=== PATIENT | male | born 1970 | race African-American/Black ===

== ENCOUNTER 2018-08-09 09:14 | Observation (INO) | payer OTHER ==
[~2018-08-09] VITALS: Ht 167.6 cm; Wt 78.0 kg
[~2018-08-09 09:14] MED LIST: BACTRIM DS1 TAB PO; BENADRYL25 MG PO; CIPROFLOXACN500 MG PO; CLONAZEPAM0.5 MG OR; DEPAKOTE250 MG OR; DEPAKOTE500 MG PO; DOXYCYCL HYC100 M4 PO; ENSURE OR; HALOPERIDOL10 MG OR; LORTAB 10 PO; PAROXETINE10 MG OR; PAROXETINE10 MG PO; PAXIL10 MG OR; TEGRETOL OR; TEGRETOL PO
--- NOTE | 2018-08-09 09:31 | NUR ---
PATIENT TO ROOM VIA WHEELCHAIR AND PHYSICIAN AT BEDSIDE FOR EVAL
[2018-08-09 10:45] LABS: HEMATOCRIT 45.9 % (39.0-50.0); HEMOGLOBIN 14.3 g/dl (14.0-18.0); IMMATURE GRANULOCYTES 0.4 % (0.0-5.0); MEAN CELL VOLUME 101.3 fL CALC (80.0-100.0); MEAN CORPUSCULAR HGB 31.6 pG CALC (26.0-32.0); MEAN CORPUSCULAR HGB CONC 31.2 g/L CALC (32.0-36.0); NEUT# 5.95 thou/uL (1.82-7.42); RED BLOOD COUNT 4.53 mill/uL (4.70-6.10); RED CELL DISTRI WIDTH 14.3 % (11.5-15.5)
[2018-08-09 10:58] LABS: INTERNATIONAL NORMALIZED RATIO 1.2 RATIO (0.7-1.3); PROTHROMBIN TIME 12.4 SECONDS (9.0-12.5)
--- NOTE | 2018-08-09 11:00 | NUR ---
PT WITH IV ESTABLISHED, BLOOD DRAWN. NO DISTRESS. PT NON-VERBAL.
[2018-08-09 11:02] LABS: ALBUMIN 3.6 g/dL (3.2-5.0); ALKALINE PHOSPHATASE 91 u/l (38-126); BUN 20 mg/dL (9-20); BUN/CREATININE RATIO 21 (12-20 (CALC)); CHLORIDE 106 mmol/l (95-108); CREATININE 0.9 mg/dL (0.7-1.3); GFR > 60 ML/MIN (>=60 (CALC)); GFR FOR AFR.AMER. > 60 ML/MIN (>=60 (CALC)); SGOT/AST 91 u/l (17-59); SODIUM 145 mmol/l (137-146); TOTAL PROTEIN 9.4 g/dL (6.3-8.2)
[2018-08-09 11:04] LABS: ANION GAP 13 (6-22 (CALC)); BILIRUBIN, TOTAL 0.9 mg/dL (0.0-1.4); CARBON DIOXIDE 30 mmol/l (22-30); POTASSIUM 4.2 mmol/l (3.5-5.1)
[2018-08-09 14:11] LABS: URINE BLOOD DIPSTICK NEGATIVE (NEGATIVE); URINE GLUCOSE - DIPSTICK NEGATIVE (NEGATIVE); URINE KETONE TRACE mg/dL (NEGATIVE); URINE LEUK ESTERASE NEGATIVE (NEGATIVE); URINE NITRITE - DIPSTICK NEGATIVE (Negative); URINE PH 5.5 (4.5-8.0); URINE PROTEIN - DIPSTICK NEGATIVE (NEG-TRACE); URINE SPECIFIC GRAVITY >=1.030
[2018-08-09 14:12] LABS: URINE BILIRUBIN - DIPSTICK NEGATIVE (NEGATIVE); URINE COLOR DK. YELLOW
--- NOTE | 2018-08-09 14:23 | NUR ---
PT STRAIGHT CATHED FOR URINE SPECIMEN. CAREGIVER AT BEDSIDE. NO SEIZURE ACTIVITY NOTED.
--- NOTE | 2018-08-09 15:52 | NUR ---
PT AND CAREGIVER WAIT FOR RESULTS FROM CT. PT REMAINS AT REST IN THE STRETCHER.
--- NOTE | 2018-08-09 15:59 | NUR ---
EMERGENCY INTELLIGENCE CONSULTANT PHONE NUMBER FOR CONGREGATION SERVICES, . THIS IN CASE CONSENT NEEDS TO BE GIVEN FOR PROCEDURE OR SIMILAR.
[2018-08-09] MEDS ORDERED: DIVALPROEX SOD250 MG PO (16:16)
[2018-08-09] MEDS ORDERED: LEVETIRACETAM500 MG PO (16:16)
--- NOTE | 2018-08-09 16:24 | NUR ---
CAREGIVER AWARE OF PENDING ADMISSION, LEAVES HOSPITAL AFTER UPDATE. PT RESTS IN THE STRETCHER, NO DISTRESS NOTED.
--- NOTE | 2018-08-09 17:00 | NUR ---
PT ARRIVED FROM ER VIA STRETCHER ACCOMPANIED BY STAFF. IV SITE INTACT. DEPEND IN PLACE.
--- NOTE | 2018-08-09 17:03 | NUR ---
PT TAKEN TO ROOM 273 WITHOUT INCIDENT, REPORT WAS TO MAGGIE.
[2018-08-09 17:04] VITALS: BP 131/76
--- NOTE | 2018-08-09 17:40 | NUR ---
ASSESSMENT IS COMPLETED: PT HAS GARBLED SPEECH. IV SITE IS FREE FROM REDNESS OR EDEMA. HR IS REG,PULSES ARE STRONG X4, ABD IS SOFT WITH ACTIVE BS. BREATH SOUNDS ARE CLEAR.BILATERALLY. HELMET IN PLACE. CONTINUE TO OSBERVE AND MONTIOR.
[2018-08-09 18:30] VITALS: BP 147/102
--- NOTE | 2018-08-09 19:30 | NUR ---
PATIENT RESTING IN BED AT THIS TIME WITH EYES CLOSED AND APPEARS SLEEPING. RESP ARE EVEN AND UNLABORED. TEMP IS 99.0 AT THIS TIME. HELMET HAS BEEN REMOVED AND SIDERAILS HAVE BEEN PADDED FOR SEIZURE PRECAUTIONS. IV KEPPRA INFUSING ORDERED. IV SITE TO RIGHT AC INTACT-IVF D51/2NS AT 75CC/HR. PATIENT IS NPO AT THIS TIME. BED ALARM IN PLACE FOR PATIENT SAFETY. CALL LIGHT IN REACH. WILL CONT TO MONITOR.
--- NOTE | 2018-08-10 00:12 | NUR ---
PATIENT RESTING IN BED AT THIS TIME. RESPONDS WITH A MOAN WHEN SPOKEN TO. IV ZOSYN HUNG AND IS INFUSING ORDERED. SIDERAILS PADDED FOR SEIZURE PRECAUTIONS. CALL LIGHT IN REACH. WILL CONT TO MONITOR.
--- NOTE | 2018-08-10 01:06 | NUR ---
PATIENT MORE AWAKE AND ALERT AT THIS TIME. INCONT OF LARGE AMT OF URINE. PATIENT PROVIDED WITH DEREK-CARE. TURNED AND REPOSITIONED ON RIGHT SIDE. BED ALARM IN PLACE FOR PATIENT SAFETY. CALL LIGHT IN REACH. WILL CONT TO MONITOR.
[2018-08-10 03:26] VITALS: BP 117/79
--- NOTE | 2018-08-10 05:08 | NUR ---
PATIENT RESTING IN BED-MUCH MORE ALERT AT THIS TIME. [facility] CONTACT. LAB WAS UNABLE TO OBTAIN LAB SPEC AT THIS TIME. WILL TRY AGAIN AFTER SHIFT CHANGE. PATIENT ANSWERS QUESTIONS BY SHAKING HIS HEAD OR 1 WORD ANSWERS. IVF PATENT AND INFUSING VIA RIGHT AC SITE. BED ALARM IN PLACE FOR PATIENT SAFETY. CALL LIGHT IN REACH. WILL CONT TO MONITOR.
[2018-08-10 08:20] VITALS: BP 113/65
--- NOTE | 2018-08-10 08:20 | NUR ---
ASSESSMENT IS COMPLETED: IV SITE IS FREE FROM REDNESS OR EDEMA. HR IS REG,PULSES ARE STRONG X4, ABD IS SOFT WITH ACTIVE BS. BREATH SOUNDS ARE CLEAR, BILATERALLY WELL DIMINSHED. ALERT TO NAME, AND DATE. CONTINUE TO OBSERVE AND MONITOR. TEMP WAS 100.1 DUE TO MULTIPLE BLANKETS.
[2018-08-10 09:41] LABS: HEMOGLOBIN 12.8 g/dl (14.0-18.0); IMMATURE GRANULOCYTES 0.6 % (0.0-5.0); MEAN CELL VOLUME 102.5 fL CALC (80.0-100.0); MEAN CORPUSCULAR HGB CONC 31.2 g/L CALC (32.0-36.0); NEUT# 5.41 thou/uL (1.82-7.42); RED CELL DISTRI WIDTH 14.4 % (11.5-15.5)
[2018-08-10 09:54] LABS: ALKALINE PHOSPHATASE 60 u/l (38-126); AMYLASE 47 u/l (30-110); ANION GAP 9 (6-22 (CALC)); BILIRUBIN, TOTAL 0.8 mg/dL (0.0-1.4); BUN 16 mg/dL (9-20); BUN/CREATININE RATIO 23 (12-20 (CALC)); CARBON DIOXIDE 31 mmol/l (22-30); CHLORIDE 108 mmol/l (95-108); CREATININE 0.7 mg/dL (0.7-1.3); GFR > 60 ML/MIN (>=60 (CALC)); GFR FOR AFR.AMER. > 60 ML/MIN (>=60 (CALC)); LIPASE 152 u/l (23-300); MAGNESIUM 2.4 mg/dL (1.6-2.3); POTASSIUM 4.9 mmol/l (3.5-5.1); SGOT/AST 72 u/l (17-59); SODIUM 143 mmol/l (137-146)
[2018-08-10 10:01] LABS: ALBUMIN 2.7 g/dL (3.2-5.0); TOTAL PROTEIN 7.4 g/dL (6.3-8.2)
--- NOTE | 2018-08-10 10:09 | NUR ---
ATTEMPTED TO CALL RE: PT WENT TO THE FAX MACHINE
[2018-08-10 10:26] LABS: PHENYTOIN (DILANTIN) < 3 ug/mL (10 - 20)
--- NOTE | 2018-08-10 10:37 | NUR ---
SPOKE WITH SOCO AT [facility] INTERMEDIATE RE: PT. INQUIRED HOW HE WAS AND TO HELP TAKE CARE OF HIM TO GET RID OF THE PNEUMONIA.
--- NOTE | 2018-08-10 10:45 | NUR ---
SPOKEW VINNY KISER STATED" PT GOES TO HIS DR APPOINTMENTS. WHEN HE COMES TO GET BLOOD THEY HAVE TO GET IT OUT OF HIS FINGER. " THANKED HER FOR THE INFORMATION.
--- NOTE | 2018-08-10 12:10 | NUR ---
PT IS AWAKE, DR. RAMEY AND MESSAGING ARCHITECT IN TO VISIT WITH PT. ABLE TO START CLEAR LIQUIDS. PT TOLERATING WELL. IV SITE IS FREE FROM REDNESS OR EDEMA. CONTINUE TO OBSERVE AND MONITOR.
[2018-08-10 15:40] VITALS: BP 127/73
--- NOTE | 2018-08-10 16:10 | NUR ---
PT IS RELAXING IN BED WITH NO DISTRESS NOTED. ROOM IS VERY WARM. TEMP AT THIS TIME ON PT IS 99.5. CONTINUE TO OBSERVE AND MONITOR.
--- NOTE | 2018-08-10 19:30 | NUR ---
PATIENT RESTING IN BED AT THIST TIME. AWAKE ALERT AND WATCHING TV-DOESN'T APPEAR IN ANY DISTRESS. PATIENT DOES ANSWER SOME QUESTIONS WITH SHAKING HEAD AND OR SHORT 1 OR 2 WORD ANSWERS. PATIENT IS INCONT OF LARGE AMT OF URINE. PATIENT PROVIDED WITH DEREK-CARE WITH SOAP AND H20. TURNED AND REPOSITIONED ON HIS SIDE. IV SITE TO RIGHT AC INTACT WITH IVF D51/2NS PATENT AND INFUSING AT 75CC/HR. BED ALARM IN PLACE FOR PATIENT SAFETY. CALL LIGHT IN REACH. WILL CONT TO MONITOR.
[2018-08-10 20:15] VITALS: BP 117/71
--- NOTE | 2018-08-10 22:00 | NUR ---
PATIENT RESTING IN BED. IV SITE TO RIGHT AC INFILTRATED. AFTER MULTIPLE ATTEMPTS TO RESTART SITE, IV SITE TO RIGHT WRIST OBTAINED WITH GOOD BLOOD RETURN. KEPRRA INFUSING ORDERED. PATIENT IS NPO AND MOUTH CARE WAS DONE USING TOOTHETES. SIDERAILS ARE PADDED FOR SEIZURE PRECAUTIONS. NO SEIZURE ACTIVITY HAS BEEN OBSERVED. BED ALARM IN PLACE FOR PATIENT SAFETY. CALL LIGHT IN REACH. WILL CONT TO MONITOR.
--- NOTE | 2018-08-11 03:42 | NUR ---
APPEARS SLEEPING WITH SHEET OVER HIS HEAD. RESP ARE EVEN AND UNLABORED. IVF PATENT AND INFUSING AT 75CC/HR VIA RIGHT WRIST SITE. SIDERAILS PADDED FOR SEIZURE PRECAUTIONS. BED ALARM IN PLACE FOR PATIENT SAFETY. CALL LIGHT IN REACH. WILL CONT TO MONITOR.
[2018-08-11 04:17] VITALS: BP 110/74
--- NOTE | 2018-08-11 07:05 | NUR ---
REPORT RECEIVED FROM KATJA PAUL;PT APPEARS TO BE SLEEPING IN LEFT SIDE LAYING POSITION,WAKES EASILY TO VERBAL STIMULI;INTRODUCED SELF TO PT AND POC DISCUSSED;RESPIRATIONS EVEN AND UNLABORED ON RA;NO S/S OF DISTRESS NOTED AT THIS TIME;FALL PRECAUTIONS IN PLACE WITH BED IN THE LOWEST POSITION AND CALL LIGHT IN REACH;WILL CONTINUE TO MONITOR
[2018-08-11 07:40] VITALS: BP 119/58
--- NOTE | 2018-08-11 08:50 | NUR ---
PT RESTING IN LEFT SIDE LAYING POSITION;ASSESSMENT COMPLETED;PT ALERT TO SELF, WILL RE-ORIENT NEEDED;PT DENIES ANY CURRENT PAIN OR DISCOMFORTS,PAIN SCALE AND REPORTING EDUCATED;RESPIRATIONS SHALLOW ON RA, PRODUCTIVE COUGH NOTED AT TIMES;ABDOMEN SOFT ON PALPATION AND ACTIVE IN ALL 4 QUADRANTS;WEAK PEDAL PULSES;SKIN INTACT;#24G TO RIGHT WRIST INFUSING D5 1/2 NS @ 75ML/HR,SITE APPEARS HEALTHY;SEIZURE PRECAUTIONS IN PLACE;ALL SAFETY PRECAUTIONS NOTED WITH BED IN THE LOWEST POSITION AND CALL LIGHT IN REACH;WILL CONTINUE TO MONITOR
--- NOTE | 2018-08-11 09:15 | NUR ---
SPEECH THERAPY AT BEDSIDE
--- NOTE | 2018-08-11 09:44 | NUR ---
PHYSICAL THERAPY AT BEDSIDE
--- NOTE | 2018-08-11 11:12 | NUR ---
PT REPORTS BLE PAIN AND REQUESTS PAIN MEDICATION,PT MEDICATED WITH PRN TYLENOL 650MG RE SUP;WILL CONTINUE TO MONITOR
--- NOTE | 2018-08-11 12:05 | NUR ---
PT RESTING IN SEMI FOWLERS POSITION;RESPIRATIONS EVEN AND UNLABORED ON RA;PT REPORTS BLE PAIN HAS DECREASED;IV SITE CONTINUES TO INFUSE TO RIGHT WRIST WITH EASE;SEIZURE PRECAUTIONS IN PLACE;PT ENCOURAGED TO CALL FOR ASSISTANCE IF NEEDED;CALL LIGHT IN REACH;WILL CONTINUE TO MONITOR
--- NOTE | 2018-08-11 12:48 | NUR ---
AT BEDSIDE DISCUSSING POC.
[2018-08-11 15:30] VITALS: BP 140/79
--- NOTE | 2018-08-11 16:10 | NUR ---
PT RESTING IN SEMI FOWLERS POSITION;RESPIRATIONS EVEN AND UNLABORED ON RA;PT DENIES ANY CURRENT PAIN AT THIS TIME;ASSESSMENT REMAINS UNCHANGED;NO IV SITE PER MD;SEIZURE AND FALL PRECAUTIONS IN PLACE;BED IN THE LOWEST POSITION WITH CALL LIGHT IN REACH;WILL CONTINUE TO MONITOR
--- NOTE | 2018-08-11 19:26 | NUR ---
PATIENT RESTING IN BED-POSITIONED ON LEFT SIDE WITH SIDERAILS PADDED FOR SEIZURE PRECAUTIONS. APPEARS SLEEPING WITH EYES CLOSED. RESP ARE EVEN AND UNLABORED AT THIS TIME. NO IV SITE AT THIS TIME. NO TELE. CALL LIGHT IN REACH. WILL CONT TO MONITOR.
[2018-08-11 19:53] VITALS: BP 162/88
--- NOTE | 2018-08-11 20:24 | NUR ---
PATIENT RESTING IN BED WITH HOB ELEVATED. PATIENT MEDICATED WITH KEPPRA 750MG CRUSHED IN PUDDING. PATIENT WAS ABLE TO TAKE MEDS WITHOUT ANY DIFFICULTY. SIDERAILS REMAIN IN PLACE. BED ALARM IN PLACE FOR PATIENT SAFETY. CALL LIGHT IN REACH. WILL CONT TO MONITOR.
--- NOTE | 2018-08-11 21:36 | NUR ---
PATIENT RESTING IN BED-APPEARS TO BE IN PAIN WHEN TURNING AND REPOSITIONING PATIENT WITH FACIAL GRIMACE AND MOANING OUTLOAD. MEDICATED PATIENT WITH ULTRAM 50MG PO IN APPLESAUCE. PPATIENT WITH NO DIFFICULTY IN SWALLOWING AND ATE THE WHOLE CONTAINER. SIDERAILS ARE PADDED FOR SEIZURE PRECAUTIONS. NO SEIZURE ACTIVITY NOTED. BED ALARM IN PLACE FOR PATIENT SAFETY. CALL LIGHT IN REACH. WILL CONT TO MONITOR.
--- NOTE | 2018-08-11 22:00 | NUR ---
MENDOZA KISER CALLED WANTING TO SPEAK TO NURSE FOR PARI. WAS NOT AVAILABLE AT THE TIME OF THE CALL CARING FOR OTHER PATIENTS. ATEEMTED TO CALL MENDOZA BACK AT [phone] AND WAS NO ANSWER AND NO VOICE MAIL SET UP. WILL CONT TO MONITOR.
--- NOTE | 2018-08-12 00:02 | NUR ---
PATIENT RESTING ON SIDE WITH LINENS OVER HIS HEAD-APPEARS SLEEPING AT THIS TIME. RESP ARE EVEN AND UNLABORED. SIDERAILS IN PLACE FOR SEIZURE PRECAUTIONS. NO SEIZURE ACTIVITY OBSERVED. BED ALARM IN PLACE FOR PATIENT SAFETY. CALL LIGHT IN REACH. WILL CONT TO MONITOR.
--- NOTE | 2018-08-12 03:55 | NUR ---
PATIENT APPEARS SLEEPING WITH LINENS OVER HIS HEAD. RESP ARE EVEN AND UNLABORED. SIDERAILS REMAIN PADDED FOR SEIZURE PRECAUTIONS-NO SEIZURE ACTIVITY OBSERVED. CALL LIGHT IN REACH. WILL CONT TO MONITOR.
[2018-08-12 04:13] VITALS: BP 124/66
[2018-08-12 05:10] LABS: HEMATOCRIT 36.9 % (39.0-50.0); HEMOGLOBIN 11.8 g/dl (14.0-18.0); IMMATURE GRANULOCYTES 0.7 % (0.0-5.0); MEAN CELL VOLUME 98.4 fL CALC (80.0-100.0); MEAN CORPUSCULAR HGB 31.5 pG CALC (26.0-32.0); NEUT# 4.84 thou/uL (1.82-7.42); RED BLOOD COUNT 3.75 mill/uL (4.70-6.10)
[2018-08-12 05:38] LABS: ALBUMIN 2.6 g/dL (3.2-5.0); ALKALINE PHOSPHATASE 78 u/l (38-126); ANION GAP 11 (6-22 (CALC)); BILIRUBIN, TOTAL 0.9 mg/dL (0.0-1.4); BUN 11 mg/dL (9-20); BUN/CREATININE RATIO 17 (12-20 (CALC)); CARBON DIOXIDE 28 mmol/l (22-30); CHLORIDE 103 mmol/l (95-108); CREATININE 0.7 mg/dL (0.7-1.3); GFR > 60 ML/MIN (>=60 (CALC)); GFR FOR AFR.AMER. > 60 ML/MIN (>=60 (CALC)); POTASSIUM 4.4 mmol/l (3.5-5.1); SGOT/AST 51 u/l (17-59); SODIUM 137 mmol/l (137-146); TOTAL PROTEIN 6.8 g/dL (6.3-8.2)
--- NOTE | 2018-08-12 07:00 | NUR ---
PT REPORT RECIEVED FROM KATJA PAUL. PT RESTING. NO S/S OF DISTRESS. CALL LIGHT IN REACH. WILL CONTINUE TO MONITOR.
[2018-08-12 08:41] VITALS: BP 122/83
--- NOTE | 2018-08-12 08:41 | NUR ---
PT ALERT TO SELF; SPEECH GARBLED. REORIENTED NEEDED. NONPRODUCTIVE COUGH NOTED. HOB ELEVATED. RESP EVEN AND UNLABORED. LUNG SOUNDS CLEAR. BOWEL SOUNDS ACTIVE X4. STRONG RADIAL AND PEDAL PULSES. NO IV SITE AT THIS TIME. SKIN INTACT. POC DISCUSSED. SAFETY PRECAUTIONS IN PLACE. CALL LIGHT IN REACH. Q2 TURN. WILL CONTINUE TO MONITOR.
--- NOTE | 2018-08-12 10:00 | NUR ---
PHYSICAL THERAPY IN TO SEE PT
--- NOTE | 2018-08-12 10:06 | NUR ---
Attempted physical therapy treatment this morning, however pt. not cooperating. Minimally verbalized yes/no, mostly nodded his head yes/no to questions. Pt. laying L side lying in position and resisting therapy intervention. Nurse informed of same.
--- NOTE | 2018-08-12 12:09 | NUR ---
PT C/O LT LEG PAIN. 7 OUT OF 10 ON PAIN SCALE. MEDICATED W/ ULTRAM 50 MG PO. REPOSITIONED IN BED. ORDNANCE KEEPER AT BEDSIDE FEEDING PT. CALL LIGHT IN REACH. WILL CONTINUE TO MONITOR.
[2018-08-12] MEDS ORDERED: LEVAQUIN500 MG PO (13:06)
[2018-08-12 15:05] VITALS: BP 107/73
--- NOTE | 2018-08-12 15:30 | NUR ---
Entered pt. room as he was sleeping. Tried numerous times to wake pt. without any response.
--- NOTE | 2018-08-12 15:44 | NUR ---
PT RESTING IN BED. NO C/O PAIN OR NEEDS. CALL LIGHT IN REACH. WILL CONTINUE TO MONITOR.
--- NOTE | 2018-08-12 17:20 | NUR ---
D/C INSTRUCTIONS DISCUSSED W/ PT CAREGIVER. CAREGIVER STATES UNDERSTANDING. PT GETTING CLEANED UP BY [employer] EQUIPMENT REPAIRER'S AT THIS TIME.
--- NOTE | 2018-08-12 17:30 | NUR ---
Discharge instructions given. Patient verbalizes understanding of same. Discharged in stable condition via Wheelchair to [facility] Facility with *Other. All belongings sent with pt.
== END 2018-08-12 17:30 | disposition short-term general hospital (02) ==
LOC: ED 09:14 → ED-I 09:37 → ED 16:22 → MS2 16:23
PROVIDERS: Emergency Medicine; Nurse Practitioner Family; ADMIT Internal Medicine Nephrology; ATTEND Internal Medicine Nephrology
DX: J18.9 Pneumonia, unspecified organism (principal); G93.41 Metabolic encephalopathy; F73 Profound intellectual disabilities; G40.909 Epilepsy, unspecified, not intractable, without status epilepticus; G80.9 Cerebral palsy, unspecified; S00.03XA Contusion of scalp, initial encounter; X58.XXXA Exposure to other specified factors, initial encounter; Y95 Nosocomial condition; Z99.3 Dependence on wheelchair
CPT/HCPCS: G0378; J1650; J1953; Q9967; S0164

== ENCOUNTER 2019-01-01 18:07 | Emergency (ER) | payer OTHER ==
[~2019-01-01] VITALS: Ht 167.6 cm; Wt 81.8 kg
[~2019-01-01 18:07] MED LIST changes: +DIVALPROEX SOD250 MG PO; +LEVAQUIN500 MG PO; +LEVETIRACETAM500 MG PO
[2019-01-01] MEDS ORDERED: LEVETIRACET100 MG/M1 PO (18:18)
[2019-01-01 19:08] LABS: IMMATURE GRANULOCYTES 0.4 % (0.0-5.0); MEAN CORPUSCULAR HGB 26.8 pG CALC (26.0-32.0); MEAN CORPUSCULAR HGB CONC 31.5 g/L CALC (32.0-36.0); NEUT# 9.75 thou/uL (1.82-7.42); RED BLOOD COUNT 5.45 mill/uL (4.70-6.10); RED CELL DISTRI WIDTH 14.2 % (11.5-15.5)
[2019-01-01 19:09] LABS: HEMATOCRIT 46.3 % (39.0-50.0); HEMOGLOBIN 14.6 g/dl (14.0-18.0)
[2019-01-01 19:49] LABS: URINE BILIRUBIN - DIPSTICK NEGATIVE (NEGATIVE); URINE BLOOD DIPSTICK NEGATIVE (NEGATIVE); URINE COLOR YELLOW; URINE GLUCOSE - DIPSTICK NEGATIVE (NEGATIVE); URINE KETONE NEGATIVE (NEGATIVE); URINE LEUK ESTERASE NEGATIVE (NEGATIVE); URINE NITRITE - DIPSTICK NEGATIVE (Negative); URINE PH 5.5 (4.5-8.0); URINE PROTEIN - DIPSTICK TRACE mg/dL (NEG-TRACE); URINE SPECIFIC GRAVITY >=1.030
[2019-01-01 19:50] LABS: BARBITURATES NEGATIVE (NEGATIVE); COCAINE NEGATIVE (NEGATIVE); METHADONE NEGATIVE (NEGATIVE); OXCYCODONE NEGATIVE (NEGATIVE); TETRAHYDROCANNABIONOL NEGATIVE (NEGATIVE); TRICYLIC ANTIDEPRESSANTS NEGATIVE (NEGATIVE)
[2019-01-01 20:02] LABS: ALKALINE PHOSPHATASE 110 u/l (38-126); BILIRUBIN, TOTAL 0.9 mg/dL (0.0-1.4); BUN 9 mg/dL (9-20); BUN/CREATININE RATIO 15 (12-20 (CALC)); CHLORIDE 105 mmol/l (95-108); CREATININE 0.6 mg/dL (0.7-1.3); ETHYL ALCOHOL 0 mg/dl (0-30); GFR > 60 ML/MIN (>=60 (CALC)); GFR FOR AFR.AMER. > 60 ML/MIN (>=60 (CALC)); POTASSIUM 3.7 mmol/l (3.5-5.1); SGOT/AST 26 u/l (17-59); SODIUM 141 mmol/l (137-146)
[2019-01-01 20:09] LABS: ALBUMIN 4.4 g/dL (3.2-5.0); ANION GAP 18 (6-22 (CALC)); CARBON DIOXIDE 22 mmol/l (22-30); TOTAL PROTEIN 9.4 g/dL (6.3-8.2)
[2019-01-01 21:29] VITALS: BP 129/65
== END 2019-01-01 22:10 | disposition short-term general hospital (02) ==
LOC: ED 18:07
PROVIDERS: Emergency Medicine
DX: G40.909 Epilepsy, unspecified, not intractable, without status epilepticus (principal); J18.9 Pneumonia, unspecified organism; G80.9 Cerebral palsy, unspecified; F79 Unspecified intellectual disabilities
CPT/HCPCS: J1953; J2060

== ENCOUNTER 2020-11-28 17:19 | Observation (INO) | payer OTHER ==
[~2020-11-28] VITALS: Ht 167.6 cm; Wt 73.0 kg
[~2020-11-28 17:19] MED LIST changes: +LEVETIRACET100 MG/M1 PO
--- NOTE | 2020-11-28 17:40 | NUR ---
PT TO ROOM VIA WHEELCHAIR, ACCOMPANIED BY CAREGIVER.
[2020-11-28 18:44] LABS: URINE BILIRUBIN - DIPSTICK NEGATIVE (NEGATIVE); URINE BLOOD DIPSTICK TRACE-INTACT (NEGATIVE); URINE COLOR YELLOW; URINE GLUCOSE - DIPSTICK NEGATIVE (NEGATIVE); URINE KETONE NEGATIVE (NEGATIVE); URINE LEUK ESTERASE NEGATIVE (NEGATIVE); URINE PROTEIN - DIPSTICK TRACE mg/dL (NEG-TRACE); URINE SPECIFIC GRAVITY >=1.030
[2020-11-28 18:47] LABS: HEMOGLOBIN 12.4 g/dl (14.0-18.0); IMMATURE GRANULOCYTES 0.2 % (0.0-5.0); MEAN CELL VOLUME 96.4 fL CALC (80.0-100.0); MEAN CORPUSCULAR HGB 29.9 pG CALC (26.0-32.0); NEUT# 7.81 thou/uL (1.82-7.42); RED BLOOD COUNT 4.15 mill/uL (4.70-6.10); RED CELL DISTRI WIDTH 14.3 % (11.5-15.5)
[2020-11-28 18:53] LABS: URINE NITRITE - DIPSTICK NEGATIVE (Negative)
[2020-11-28 18:56] LABS: ALBUMIN 3.2 g/dL (3.2-5.0); ALKALINE PHOSPHATASE 123 u/l (38-126); ANION GAP 6 (6-22 (CALC)); BILIRUBIN, TOTAL 0.5 mg/dL (0.0-1.4); BUN 15 mg/dL (9-20); BUN/CREATININE RATIO 23 (12-20 (CALC)); CARBON DIOXIDE 31 mmol/l (22-30); CHLORIDE 103 mmol/l (95-108); CREATININE 0.7 mg/dL (0.7-1.3); GFR > 60 ML/MIN (>=60 (CALC)); GFR FOR AFR.AMER. > 60 ML/MIN (>=60 (CALC)); LIPASE 101 u/l (23-300); POTASSIUM 4.4 mmol/l (3.5-5.1); SGOT/AST 42 u/l (17-59); SODIUM 137 mmol/l (137-146); TOTAL PROTEIN 9.9 g/dL (6.3-8.2)
--- NOTE | 2020-11-28 18:56 | NUR ---
REPORT GIVEN TO KATJA BUSTILLO.
--- NOTE | 2020-11-28 19:15 | NUR ---
Reassessment of patient completed. No distress noted. Recieved report from June, RN, assumed care of patient.
--- NOTE | 2020-11-28 20:24 | NUR ---
Reassessment of patient completed. No distress noted. CARE FACILITY STAFF AT BEDSIDE. DEVICE SALES CONSULTANT AWARE THAT PT WILL NEED SITTER AT BEDSIDE.
--- NOTE | 2020-11-28 20:40 | NUR ---
[employer] attendant left bedside to return home. Pt to be admitted.
--- NOTE | 2020-11-28 20:51 | NUR ---
FIRST ATTEMPT TO CALL REPORT TO LINA/SURGCaitie JEFFERS IS WITH A PATIENT AND WILL CALL WHEN HE BECOMES AVAILABLE.
--- NOTE | 2020-11-28 21:10 | NUR ---
REPORT RECEIVED FROM Hi BOSTON RN
[2020-11-28] MEDS ORDERED: DIVALPROEX SOD500 M3 PO (21:19)
--- NOTE | 2020-11-28 21:37 | NUR ---
Admission Note Report Given to: BEATRIZ HIGHTOWER Transported by: Wheelchair X Stretcher Transported with: X Nurse Transporter X Patent IV O2 Director [employer] Location: ICU X MS2
[2020-11-28 21:55] VITALS: BP 119/59
--- NOTE | 2020-11-28 21:55 | NUR ---
PATIENT ARRIVED ON FLOOR ACCOMPANIED BY Juan C JACKSON LPN. TRANSFERRED TO BED WITH ASSIST X3
--- NOTE | 2020-11-29 00:30 | NUR ---
SITTER AT BEDSIDE, NO APPARENT NEEDS AT THIS TIME
[2020-11-29 00:35] VITALS: BP 116/74
[2020-11-29 04:00] VITALS: BP 106/70
--- NOTE | 2020-11-29 04:22 | NUR ---
LAB AT BEDSIDE, UNABLE TO OBTAIN MORNING LABS.
--- NOTE | 2020-11-29 04:22 | NUR ---
PATIENT 1:1 SITTER REMAINS AT BEDSIDE. NO APPARENT NEEDS AT THIS TIME
--- NOTE | 2020-11-29 04:23 | NUR ---
SITTER AT BEDSIDE, NO APPARENT NEEDS AT THIS TIME
--- NOTE | 2020-11-29 07:00 | NUR ---
REPORT RECEIVED FROM KATJA HENDERSON
--- NOTE | 2020-11-29 08:15 | NUR ---
PT RESTING IN SEMI FOWLERS POSITION WITH CAITLYN SITTER AT BEDSIDE;PT ALERT TO PERSON AND PLACE BUT COGNITIVE LIMITATIONS NOTED;VS OBTAINED AND ASSESSMENT COMPLETED;PT DENIES ANY CURRENT PAIN OR DISCOMFORTS,PAIN SCALE AND REPORTING EDUCATED;RESPIRATIONS EVEN AND UNLABORED ON RA,CLEAR LUNG SOUNDS;ABDOMEN SOFT ON PALPATION AND ACTIVE IN ALL 4 QUADRANTS;WEAK PEDAL PULSES WITH +3 EDEMA NOTED TO BLE,ENCOURAGED ELEVATION BUT CONTRACTURES OF LEGS NOTED;WOUNDS TO BILATERAL ANKLES NOTED;PHOTOGRAPH PLACED IN CHART AND WOUNDS DRESSED WITH A DRY DRESSING AT THIS TIME;ZHANG CATHETER IN PLACE DRAINING YELLOW URINE TO GRAVITY;#20G TO RIJ INFUSING NS @ 100ML/HR,SITE APPEARS HEALTHY;ALL SAFETY PRECAUTIONS REMAIN IN PLACE WITH BED IN THE LOWEST POSITION AND SEIZURE PRECAUTIONS IN PLACE;CALL LIGHT IN REACH;WILL CONTINUE TO MONITOR
[2020-11-29 08:16] VITALS: BP 130/77
--- NOTE | 2020-11-29 08:28 | NUR ---
LAB AT BEDSIDE
[2020-11-29 09:06] LABS: HEMATOCRIT 35.6 % (39.0-50.0); HEMOGLOBIN 11.2 g/dl (14.0-18.0); MEAN CELL VOLUME 95.4 fL CALC (80.0-100.0); MEAN CORPUSCULAR HGB CONC 31.5 g/dL CAL (32.0-36.0); RED BLOOD COUNT 3.73 mill/uL (4.70-6.10); RED CELL DISTRI WIDTH 14.3 % (11.5-15.5)
[2020-11-29 10:14] LABS: ANION GAP 9 (6-22 (CALC)); BUN 16 mg/dL (9-20); BUN/CREATININE RATIO 28 (12-20 (CALC)); CARBON DIOXIDE 26 mmol/l (22-30); CHLORIDE 110 mmol/l (95-108); CREATININE 0.6 mg/dL (0.7-1.3); GFR > 60 ML/MIN (>=60 (CALC)); GFR FOR AFR.AMER. > 60 ML/MIN (>=60 (CALC)); MAGNESIUM 2.5 mg/dL (1.6-2.3); POTASSIUM 5.1 mmol/l (3.5-5.1); SODIUM 139 mmol/l (137-146)
--- NOTE | 2020-11-29 11:15 | NUR ---
AND MEME CH AT BEDSIDE DISCUSSING POC WITH PT.
--- NOTE | 2020-11-29 11:40 | NUR ---
PT RESTING IN SEMI FOWLERS POSITION;RESPIRATIONS EVEN AND UNLABORED ON RA;PT DENIES ANY CURRENT PAIN OR DISCOMFORTS;ZHANG CATHETER PATENT;IV SITE INFUSING NS @ 100ML/HR;CAITLYN SITTER AT BEDSIDE ASSISTING WITH FEEDING;ALL SAFETY PRECAUTIONS REMAIN IN PLACE WITH BED IN THE LOWEST POSITION AND SEIZURE PRECAUTIONS IN PLACE;CALL LIGHT IN REACH;WILL CONTINUE TO MONITOR
--- NOTE | 2020-11-29 12:00 | NUR ---
ZHANG CATHETER REMOVED AT THIS TIME PER ORDER,PT TOLERATED WELL.
[2020-11-29] MEDS ORDERED: BISACODYL10 M2 RE (13:57)
[2020-11-29] MEDS ORDERED: POLYETHYLENE GL17 GM PO (13:57)
[2020-11-29] MEDS ORDERED: SENNA-PLUS1 TAB PO (13:57)
--- NOTE | 2020-11-29 14:12 | NUR ---
ALL DISCHARGE INSTRUCTIONS CALLED TO MENDOZA ANDERSON AT [facility];ALL QUESTIONS ANSWERED AT THIS TIME.IV SITE REMOVED WITH CATHETER INTACT;MS KISER TO JUVENILE COUNSELOR PT FOR TRANSPORTATION VIA IN APPROX 1 HOUR;PT EDUCATED ON D/C PLANS AND VERBALIZES UNDERSTANDING;SITTER REMAINS AT BEDSIDE;CALL LIGHT IN REACH;WILL CONTINUE TO MONITOR
--- NOTE | 2020-11-29 15:29 | NUR ---
Discharge instructions given. Patient verbalizes understanding of same. Discharged in stable condition via Wheelchair to [facility] Facility with *Other. All belongings sent with pt. PT TRANSPORTED TO [facility] IN STABLE CONDITION VIA ACCOMPANIED BY MENDOZA ANDERSON CAREGIVER AT [facility] FOR D/C HOME.ALL BELONGINGS LEFT WITH PT AND D/C INSTRUCTIONS PROVIDED TO CAREGIVER. MENDOZA ANDERSON TO TRANSPORT PT HOME TO [facility].
--- NOTE | 2020-11-30 08:49 | NUR ---
PRELIM BLOOD CX SHOWS GRAM POSITIVE COCCI IN 1/4 VIALS, LIKELY CONTAMINANT. REPORTED TO RUSSELL. WILL FOLLOW UP WITH FINAL
--- NOTE | 2020-12-01 09:00 | NUR ---
FINAL BLOOD CX SHOWS STAPH CAPITIS IN 1/, REPORTED TO RUSSELL. NO NEW ORDERS
== END 2020-11-29 15:29 | disposition other institution (70) ==
LOC: ED 17:19 → MS2 20:25
PROVIDERS: Family Medicine; ADMIT Hospitalist; ATTEND Hospitalist
DX: K59.00 Constipation, unspecified (principal); G40.909 Epilepsy, unspecified, not intractable, without status epilepticus; F72 Severe intellectual disabilities; G80.9 Cerebral palsy, unspecified; K21.9 Gastro-esophageal reflux disease without esophagitis; Z20.822 Contact with and (suspected) exposure to COVID-19
CPT/HCPCS: G0378; J1650

== ENCOUNTER 2020-12-12 09:49 | Inpatient (IN) | payer OTHER ==
[~2020-12-12] VITALS: Ht 165.1 cm; Wt 81.6 kg
[~2020-12-12 09:49] MED LIST changes: +BISACODYL10 M2 RE; +DEPAKOTE ER250 MG PO; -DIVALPROEX SOD250 MG PO; +DIVALPROEX SOD500 M3 PO; +POLYETHYLENE GL17 GM PO; +SENNA-PLUS1 TAB PO
[2020-12-12 11:33] LABS: URINE BLOOD DIPSTICK NEGATIVE (NEGATIVE); URINE COLOR YELLOW; URINE GLUCOSE - DIPSTICK NEGATIVE (NEGATIVE); URINE KETONE NEGATIVE (NEGATIVE); URINE LEUK ESTERASE NEGATIVE (NEGATIVE); URINE PROTEIN - DIPSTICK NEGATIVE (NEG-TRACE); URINE SPECIFIC GRAVITY 1.025
[2020-12-12 11:36] LABS: URINE BILIRUBIN - DIPSTICK SMALL (NEGATIVE); URINE NITRITE - DIPSTICK NEGATIVE (Negative)
[2020-12-12 13:45] LABS: HEMATOCRIT 39.6 % (39.0-50.0); HEMOGLOBIN 12.4 g/dl (14.0-18.0); MEAN CELL VOLUME 94.5 fL CALC (80.0-100.0); MEAN CORPUSCULAR HGB 29.6 pG CALC (26.0-32.0); MEAN CORPUSCULAR HGB CONC 31.3 g/dL CAL (32.0-36.0); NEUT# 15.84 thou/uL (1.82-7.42); RED BLOOD COUNT 4.19 mill/uL (4.70-6.10); RED CELL DISTRI WIDTH 15.2 % (11.5-15.5)
[2020-12-12 13:55] LABS: ALKALINE PHOSPHATASE 174 u/l (38-126); AMYLASE 71 u/l (30-110); BUN 23 mg/dL (9-20); BUN/CREATININE RATIO 43 (12-20 (CALC)); CARBON DIOXIDE 29 mmol/l (22-30); CHLORIDE 102 mmol/l (95-108); CREATININE 0.5 mg/dL (0.7-1.3); GFR > 60 ML/MIN (>=60 (CALC)); GFR FOR AFR.AMER. > 60 ML/MIN (>=60 (CALC)); LIPASE 88 u/l (23-300); SGOT/AST 57 u/l (17-59); SODIUM 136 mmol/l (137-146); TOTAL PROTEIN 9.7 g/dL (6.3-8.2)
[2020-12-12 13:56] LABS: ANION GAP 10 (6-22 (CALC)); BILIRUBIN, TOTAL 0.8 mg/dL (0.0-1.4); POTASSIUM 5.2 mmol/l (3.5-5.1)
[2020-12-12 19:45] VITALS: BP 136/67
[2020-12-13 03:39] VITALS: BP 114/49
[2020-12-13 05:00] LABS: MEAN CELL VOLUME 96.4 fL CALC (80.0-100.0); MEAN CORPUSCULAR HGB 29.8 pG CALC (26.0-32.0); RED BLOOD COUNT 3.05 mill/uL (4.70-6.10); RED CELL DISTRI WIDTH 15.2 % (11.5-15.5)
[2020-12-13 05:04] LABS: ANION GAP 6 (6-22 (CALC)); BUN 18 mg/dL (9-20); BUN/CREATININE RATIO 37 (12-20 (CALC)); CARBON DIOXIDE 29 mmol/l (22-30); CHLORIDE 107 mmol/l (95-108); CREATININE 0.5 mg/dL (0.7-1.3); GFR > 60 ML/MIN (>=60 (CALC)); GFR FOR AFR.AMER. > 60 ML/MIN (>=60 (CALC)); MAGNESIUM 2.1 mg/dL (1.6-2.3); SODIUM 138 mmol/l (137-146)
[2020-12-13 05:06] LABS: POTASSIUM 3.8 mmol/l (3.5-5.1)
[2020-12-13 05:12] LABS: HEMOGLOBIN 9.1 g/dl (14.0-18.0)
[2020-12-13 05:13] LABS: HEMATOCRIT 29.4 % (39.0-50.0)
[2020-12-13 08:54] VITALS: BP 112/58
[2020-12-13] MEDS ORDERED: CICLOPIROX EX (09:04)
[2020-12-13] MEDS ORDERED: KETOCONAZOLE2 % EX (09:05)
[2020-12-13] MEDS ORDERED: [UNRECOGNIZED DRUG - OTHER] EX (09:06)
[2020-12-13] MEDS ORDERED: MUPIROCIN21 EX (09:07)
[2020-12-13 15:05] VITALS: BP 114/62
[2020-12-13 19:00] VITALS: BP 90/36
[2020-12-14 04:00] VITALS: BP 102/46
[2020-12-14 05:17] LABS: HEMATOCRIT 28.1 % (39.0-50.0); HEMOGLOBIN 8.6 g/dl (14.0-18.0); MEAN CELL VOLUME 96.6 fL CALC (80.0-100.0); MEAN CORPUSCULAR HGB 29.6 pG CALC (26.0-32.0); MEAN CORPUSCULAR HGB CONC 30.6 g/dL CAL (32.0-36.0); RED BLOOD COUNT 2.91 mill/uL (4.70-6.10); RED CELL DISTRI WIDTH 15.5 % (11.5-15.5)
[2020-12-14 05:37] LABS: ANION GAP 5 (6-22 (CALC)); BUN 9 mg/dL (9-20); BUN/CREATININE RATIO 19 (12-20 (CALC)); CARBON DIOXIDE 31 mmol/l (22-30); CHLORIDE 106 mmol/l (95-108); CREATININE 0.5 mg/dL (0.7-1.3); GFR > 60 ML/MIN (>=60 (CALC)); GFR FOR AFR.AMER. > 60 ML/MIN (>=60 (CALC)); MAGNESIUM 1.9 mg/dL (1.6-2.3); POTASSIUM 3.7 mmol/l (3.5-5.1); SODIUM 138 mmol/l (137-146)
[2020-12-14 08:26] VITALS: BP 98/40
[2020-12-14 11:38] LABS: URINE BILIRUBIN - DIPSTICK NEGATIVE (NEGATIVE); URINE BLOOD DIPSTICK NEGATIVE (NEGATIVE); URINE COLOR YELLOW; URINE GLUCOSE - DIPSTICK NEGATIVE (NEGATIVE); URINE KETONE NEGATIVE (NEGATIVE); URINE LEUK ESTERASE NEGATIVE (NEGATIVE); URINE NITRITE - DIPSTICK NEGATIVE (Negative); URINE PROTEIN - DIPSTICK NEGATIVE (NEG-TRACE); URINE UROBILINOGEN - DIPSTICK 0.2 E.U./dL (0.2)
[2020-12-14 12:00] VITALS: BP 100/62
[2020-12-14 16:08] VITALS: BP 102/78
[2020-12-15 04:00] VITALS: BP 102/54
[2020-12-15 05:31] LABS: HEMATOCRIT 26.1 % (39.0-50.0); MEAN CELL VOLUME 96.7 fL CALC (80.0-100.0); MEAN CORPUSCULAR HGB 29.6 pG CALC (26.0-32.0); MEAN CORPUSCULAR HGB CONC 30.7 g/dL CAL (32.0-36.0); RED BLOOD COUNT 2.7 mill/uL (4.70-6.10); RED CELL DISTRI WIDTH 15.8 % (11.5-15.5)
[2020-12-15 05:37] LABS: ANION GAP 4 (6-22 (CALC)); BUN 3 mg/dL (9-20); BUN/CREATININE RATIO 7 (12-20 (CALC)); CARBON DIOXIDE 31 mmol/l (22-30); CHLORIDE 106 mmol/l (95-108); CREATININE 0.4 mg/dL (0.7-1.3); GFR > 60 ML/MIN (>=60 (CALC)); GFR FOR AFR.AMER. > 60 ML/MIN (>=60 (CALC)); MAGNESIUM 1.6 mg/dL (1.6-2.3); POTASSIUM 3.2 mmol/l (3.5-5.1); SODIUM 138 mmol/l (137-146)
[2020-12-15 07:00] VITALS: BP 114/52
[2020-12-15 10:13] VITALS: BP 113/70
[2020-12-15 14:46] VITALS: BP 107/66
[2020-12-15 19:00] VITALS: BP 100/51
[2020-12-16 04:00] VITALS: BP 99/75
[2020-12-16 05:30] LABS: HEMATOCRIT 25.7 % (39.0-50.0); HEMOGLOBIN 7.8 g/dl (14.0-18.0); MEAN CELL VOLUME 98.5 fL CALC (80.0-100.0); MEAN CORPUSCULAR HGB 29.9 pG CALC (26.0-32.0); MEAN CORPUSCULAR HGB CONC 30.4 g/dL CAL (32.0-36.0); RED BLOOD COUNT 2.61 mill/uL (4.70-6.10); RED CELL DISTRI WIDTH 16.8 % (11.5-15.5)
[2020-12-16 05:47] LABS: ANION GAP 4 (6-22 (CALC)); BUN 4 mg/dL (9-20); BUN/CREATININE RATIO 12 (12-20 (CALC)); CARBON DIOXIDE 32 mmol/l (22-30); CHLORIDE 106 mmol/l (95-108); CREATININE 0.3 mg/dL (0.7-1.3); GFR > 60 ML/MIN (>=60 (CALC)); GFR FOR AFR.AMER. > 60 ML/MIN (>=60 (CALC)); MAGNESIUM 1.9 mg/dL (1.6-2.3); SODIUM 138 mmol/l (137-146)
[2020-12-16 06:09] LABS: POTASSIUM 3.9 mmol/l (3.5-5.1)
[2020-12-16 08:25] VITALS: BP 85/50
[2020-12-16 10:56] VITALS: BP 122/74
[2020-12-16 14:00] VITALS: BP 135/68
[2020-12-16 19:00] VITALS: BP 118/77
[2020-12-17 04:00] VITALS: BP 124/67
[2020-12-17 08:15] VITALS: BP 102/62
[2020-12-17 09:26] LABS: HEMATOCRIT 29.5 % (39.0-50.0); IMMATURE GRANULOCYTES 1.9 % (0.0-5.0); MEAN CORPUSCULAR HGB 29.9 pG CALC (26.0-32.0); MEAN CORPUSCULAR HGB CONC 30.5 g/dL CAL (32.0-36.0); NEUT# 6.19 thou/uL (1.82-7.42); RED BLOOD COUNT 3.01 mill/uL (4.70-6.10); RED CELL DISTRI WIDTH 17.5 % (11.5-15.5)
[2020-12-17 09:36] LABS: ANION GAP 7 (6-22 (CALC)); BUN 3 mg/dL (9-20); BUN/CREATININE RATIO 10 (12-20 (CALC)); CARBON DIOXIDE 36 mmol/l (22-30); CHLORIDE 100 mmol/l (95-108); CREATININE 0.4 mg/dL (0.7-1.3); GFR > 60 ML/MIN (>=60 (CALC)); GFR FOR AFR.AMER. > 60 ML/MIN (>=60 (CALC)); POTASSIUM 4.1 mmol/l (3.5-5.1); SODIUM 139 mmol/l (137-146)
[2020-12-17 17:20] VITALS: BP 140/84
[2020-12-17 19:12] VITALS: BP 114/65
[2020-12-18 03:50] VITALS: BP 95/54
[2020-12-18 04:48] LABS: HEMOGLOBIN 7.9 g/dl (14.0-18.0); MEAN CELL VOLUME 98.5 fL CALC (80.0-100.0); MEAN CORPUSCULAR HGB 29.9 pG CALC (26.0-32.0); MEAN CORPUSCULAR HGB CONC 30.4 g/dL CAL (32.0-36.0); RED BLOOD COUNT 2.64 mill/uL (4.70-6.10); RED CELL DISTRI WIDTH 18.1 % (11.5-15.5)
[2020-12-18 05:24] LABS: BUN 4 mg/dL (9-20); BUN/CREATININE RATIO 9 (12-20 (CALC)); CHLORIDE 100 mmol/l (95-108); CREATININE 0.4 mg/dL (0.7-1.3); GFR > 60 ML/MIN (>=60 (CALC)); GFR FOR AFR.AMER. > 60 ML/MIN (>=60 (CALC)); MAGNESIUM 1.9 mg/dL (1.6-2.3); POTASSIUM 4.2 mmol/l (3.5-5.1); SODIUM 138 mmol/l (137-146)
[2020-12-18 05:30] LABS: ANION GAP 3 (6-22 (CALC)); CARBON DIOXIDE 39 mmol/l (22-30)
[2020-12-18 07:33] VITALS: BP 98/64
[2020-12-18 15:05] VITALS: BP 96/45
[2020-12-18 19:22] VITALS: BP 100/70
== END 2020-12-18 08:55 | disposition short-term general hospital (02) | DRG 871 ==
LOC: ED 09:49 → ED-I 17:12 → ED 17:47 → MS2 17:48
PROVIDERS: Nurse Practitioner; ADMIT Hospitalist; ATTEND Hospitalist
PROC: 05JY3ZZ Inspection of Upper Vein, Percutaneous Approach (ICD-10-PCS; principal; 2020-12-12)
PROC: 06HY33Z Insertion of Infusion Device into Lower Vein, Percutaneous Approach (ICD-10-PCS; 2020-12-12)
PROC: 05HM33Z Insertion of Infusion Device into Right Internal Jugular Vein, Percutaneous Approach (ICD-10-PCS; 2020-12-16)
DX: A41.81 Sepsis due to Enterococcus (principal); G93.41 Metabolic encephalopathy; L03.116 Cellulitis of left lower limb; L03.115 Cellulitis of right lower limb; F72 Severe intellectual disabilities; C95.90 Leukemia, unspecified not having achieved remission; R65.20 Severe sepsis without septic shock; E86.0 Dehydration; R62.7 Adult failure to thrive; G80.9 Cerebral palsy, unspecified; E87.5 Hyperkalemia; E87.6 Hypokalemia; K59.00 Constipation, unspecified; I73.9 Peripheral vascular disease, unspecified; M62.49 Contracture of muscle, multiple sites; G40.909 Epilepsy, unspecified, not intractable, without status epilepticus; S91.002A Unspecified open wound, left ankle, initial encounter; S91.001A Unspecified open wound, right ankle, initial encounter; X58.XXXA Exposure to other specified factors, initial encounter; Z68.24 Body mass index [BMI] 24.0-24.9, adult; Z20.822 Contact with and (suspected) exposure to COVID-19
CPT/HCPCS: J1650; J1756; J3370; J3475; Q3014; Q9967; S0164

== ENCOUNTER 2020-12-20 15:40 | Observation (INO) | payer OTHER ==
[~2020-12-20] VITALS: Ht 167.6 cm; Wt 72.0 kg
--- NOTE | 2020-12-20 13:56 | NUR ---
REPORT RECEIVED FROM KATJA HENDERSON AT [facility].
--- NOTE | 2020-12-20 15:39 | NUR ---
PT ARRIVED TO MED/SURG ROOM 271 IN STABLE CONDITION VIA [facility] TRANSPORT;PT ASSISTED TO HOSPITAL BED WITH X3 ASSIST;PT MOSTLY NON-VERBAL, ABLE TO REPORT NAME AND .LETHARGIC;PT DENIES ANY CURRENT PAIN,PAIN SCALE AND REPORTING EDUCATED;VS OBTAINED AND ASSESSMENT COMPLETED;MEME ANRP AT BEDSIDE;RESPIRATIONS EVEN AND UNLABORED ON RA,DIMINISHED LUNG SOUNDS NOTED;ABDOMEN SOFT ON PALPATION AND ACTIVE IN ALL 4 QUADRANTS, PER [facility] LAST BM WAS 12/19/20;CONDOM CATHETER IN PLACE DRAINING CLEAR/YELLOW URINE;WEAK PEDAL PULSES WITH +3 EDEMA NOTED, FEET OFFLOADED ON A PILLOW;MULTIPLE WOUNDS NOTED THROUGHOUT BODY WITH NEW DRESSINGS PLACED TODAY BY [facility]. DRESSING TO RIGHT HIP, LEFT HIP, LOWER BACK, AND BLE;HEAL PROTECTORS IN PLACE;RIJ TL FLUSHED AND PATENT,SITE APPEARS HEALTHY;SEIZURE PRECAUTIONS IN PLACE;FALL AND ALLERGY BANDS APPLIED TO RIGHT ARM;PT DENIES ANY ADDITIONAL NEEDS AND IS ENCOURAGED TO CALL FOR ASSISTANCE IF NEEDED;FALL PRECAUTIONS REMAIN IN PLACE WITH BED IN THE LOWEST POSITION AND SITTER AT BEDSIDE;CALL LIGHT IN REACH;WILL CONTINUE TO MONITOR
[~2020-12-20 15:40] MED LIST changes: +CICLOPIROX EX; +KETOCONAZOLE2 % EX; +MUPIROCIN21 EX; +[UNRECOGNIZED DRUG - OTHER] EX
[2020-12-20 16:20] VITALS: BP 130/65
--- NOTE | 2020-12-20 16:45 | NUR ---
nurse notified of patient accucheck was 53.
--- NOTE | 2020-12-20 16:58 | NUR ---
PT BLOOD SUGAR 53. D.PB ANRP NOTIFIED AND NO NEW ORDERS RECEIVED. X2 ORANGE JUICES PROVIDED.
--- NOTE | 2020-12-20 17:33 | NUR ---
PT RESTING IN SEMI FOWLERS POSITION;RESPIRATIONS EVEN AND UNLABORED ON RA;PT DENIES ANY CURRENT PAIN OR DISCOMFORTS;ABX STARTED AT THIS TIME;CONDOM CATHETER REMAINS PATENT;ENCOURAGED TO CALL FOR ASSISTANCE IF NEEDED;FALL PRECAUTIONS IN PLACE WITH SITTER AT BEDSIDE;CALL LIGHT IN REACH;WILL CONTINUE TO MONITOR
[2020-12-20 17:50] LABS: HEMATOCRIT 30.2 % (39.0-50.0); HEMOGLOBIN 9.1 g/dl (14.0-18.0); IMMATURE GRANULOCYTES 0.6 % (0.0-5.0); MEAN CELL VOLUME 98.7 fL CALC (80.0-100.0); MEAN CORPUSCULAR HGB 29.7 pG CALC (26.0-32.0); MEAN CORPUSCULAR HGB CONC 30.1 g/dL CAL (32.0-36.0); NEUT# 11.65 thou/uL (1.82-7.42); RED BLOOD COUNT 3.06 mill/uL (4.70-6.10); RED CELL DISTRI WIDTH 19.4 % (11.5-15.5)
[2020-12-20 18:07] LABS: ANION GAP 9 (6-22 (CALC)); BUN 9 mg/dL (9-20); BUN/CREATININE RATIO 19 (12-20 (CALC)); CARBON DIOXIDE 32 mmol/l (22-30); CHLORIDE 99 mmol/l (95-108); CREATININE 0.5 mg/dL (0.7-1.3); GFR > 60 ML/MIN (>=60 (CALC)); GFR FOR AFR.AMER. > 60 ML/MIN (>=60 (CALC)); POTASSIUM 4.3 mmol/l (3.5-5.1); SODIUM 135 mmol/l (137-146)
[2020-12-20 18:57] VITALS: BP 102/71
--- NOTE | 2020-12-20 19:15 | NUR ---
PT AWAKE LAYING ON R.SIDE FACING THE DOOR. SPOKE TO ME SAYING "HI". ASSESSMENT COMPLETED AT THIS TIME. HE REMAINED NON-VERBAL FROM THAT POINT DURING ASSESSMENT. WHEN ASKED IF HE HAD PAIN WHILE PALPATING ABD HE SHOOK HIS HEAD NO SLIGHTLY EACH TIME HE WAS ASKED. HYPO BOWEL SOUDS, LUNG PADILLA DIMINISHED, BUT HE WAS DIFFICULT TO DEEP BREATH. CONDOM CATH IN PLACE DRAINING DARK YELLOW URINE TO GRAVITY. PO WATER OFFERED, HE ACCEPTED SEVERAL SIPS AT THIS TIME. I OFFERED SNACK, LISTING OPTIONS, NO RESPONSE. SITTER AT BEDSIDE. CALL LIGHT AT SIDE W/IN REACH. SEIZURE PRECAUTIONS IN PLACE. HEEL PROTECTORS ARE ON AND PILLOWS PLACED FOR PRESSURE POINTS. PT WAS REPOSITIONED SLIGHTLY PRIOR TO LEAVING ROOM WITH SITTER ASSIST.
--- NOTE | 2020-12-20 21:33 | NUR ---
pt medicated as orders provide. Pt turned to left side and cleaned of incontinent stool output/ moderate formed soft brown. Pt tolerated well. Heel protectors removed and replaced along with turning/repositioning of pillows.
--- NOTE | 2020-12-21 | NUR ---
PT SLEEPING, RESP EVEN AND NON-LABORED. SITTER AT BEDSIDE.
--- NOTE | 2020-12-21 00:54 | NUR ---
PT IS SLEEPING SOUNDLY, RESP EVEN AND NON-LABORED AT THIS TIME. IV ANTIBIOTIC THERAPY ADMINISTERED. ACCU-CHECK OBTAINED @103 FOR BLOOD GLUCOSE. PT RESPONDED TO PAIN, BUT PROMPTLY RETURNED TO SLEEP. SITTER ASSISTED AT BEDSIDE.
--- NOTE | 2020-12-21 01:28 | NUR ---
IV ANTIBIOTIC THERAPY COMPLETE AT THIS TIME. RIJ SITE FLUSHED/APPEARS HEALTHY AND PATENT. PT SLEEPING, MAKING SONOROUS SOUNDS, RESP EVEN AND NON-LABORED.
[2020-12-21 04:00] VITALS: BP 87/47
[2020-12-21 04:23] VITALS: BP 92/50
--- NOTE | 2020-12-21 05:02 | NUR ---
PT SLEEPING, IV ANTIBIOTIC THERAPY ADMINISTERED AT THIS TIME. CALL LIGHT AT SIDE AND SITTER AT BEDSIDE.
[2020-12-21 05:41] VITALS: BP 97/52
--- NOTE | 2020-12-21 07:05 | NUR ---
REPORT RECEIVED FROM KATJA BUI
[2020-12-21 08:15] VITALS: BP 93/62
--- NOTE | 2020-12-21 08:15 | NUR ---
PT RESTING IN RIGHT SIDE LAYING POSITION,ALERT TO PERSON;NON-VERBAL AT TIMES;VS OBTAINED AND ASSESSMENT COMPLETED;PT DENIES ANY CURRENT PAIN OR DISCOMFORTS,PAIN SCALE AND REPORTING EDUCATED;RESPIRATIONS EVEN AND UNLABORED ON RA,DIMINISHED LUNG SOUNDS NOTED;ABDOMEN SOFT ON PALPATION AND ACTIVE IN ALL 4 QUADRANTS;WEAK PEDAL PULSES WITH +3 EDEMA BLE;PT RE-POSITIONED TO LEFT SIDE LAYING POSITION AND BLE OFF LOADED ON A PILLOW;DRESSINGS TO BLE CDI;DRESSINGS REMOVED WITH PRESSURE POINTS (RT HIP,LT HIP, & LOWER BACK);RIJ TL FLUSHED AND PATNET,ABX STARTED AT THIS TIME;ACCUCHECK 92;SEIZURE PRECAUTIONS IN PLACE;PT DENIES ANY ADDITIONAL NEEDS AND IS ENCOURAGED TO CALL FOR ASSISTANCE IF NEEDED;FALL PRECAUTIONS IN PLACE WITH BED IN THE LOWEST POSITION AND BED ALARM ON FOR SAFETY;CALL LIGHT IN REACH;WILL CONTINUE TO MONITOR
--- NOTE | 2020-12-21 09:18 | NUR ---
AND MEME ANRP AT BEDSIDE DISCUSSING POC.
--- NOTE | 2020-12-21 09:54 | NUR ---
OT AT BEDSIDE
--- NOTE | 2020-12-21 11:17 | NUR ---
5 PRESCRIPTIONS SHEETS GIVEN TO RUSSELL CAMPBELL FOR THIS PATIENT.
--- NOTE | 2020-12-21 11:20 | NUR ---
PT RESTING IN LEFT SIDE LAYING POSITION;RESPIRATIONS EVEN AND UNLABORED ON RA;PT DENIES ANY CURRENT PAIN OR DISCOMFORTS;RIJ TL REMAINS PATENT;DRESSINGS TO BLE CDI;PT DENIES ANY ADDITIONAL NEEDS AND IS ENCOURAGED TO CALL FOR ASSISTANCE IF NEEDED;FALL PRECAUTIONS REMAIN IN PLACE WITH BED IN THE LOWEST POSITION AND BED ALARM ON FOR SAFETY;CALL LIGHT IN REACH;WILL CONTINUE TO MONITOR
[2020-12-21 15:45] VITALS: BP 95/52
--- NOTE | 2020-12-21 16:05 | NUR ---
PT RESTING IN RIGHT SIDE LAYING POSITION;RESPIRATIONS EVEN AND UNLABORED ON RA;PT DENIES ANY CURRENT PAIN OR NEEDS;RIJ TL PATENT;DRESSINGS AND HEAL PROTECTORS TO BLE INTACT;SEIZURE PRECAUTIONS NOTED;PT ENCOURAGED TO CALL FOR ASSISTANCE IF NEEDED;FALL PRECAUTIONS IN PLACE WITH CALL LIGHT IN REACH;WILL CONTINUE TO MONITOR
[2020-12-21 19:00] VITALS: BP 95/56
--- NOTE | 2020-12-22 00:45 | NUR ---
PATIENT SLEEPING SOUNDLY, AWOKEN BY WRITTER, PT HARD TO AROUSE, NORMAL STATUS ANTIBIOTIC HUNG AT THIS TIME. CALL LIGHT AND BEDSIDE TABLE WITHIN REACH, FLUIDS OFFERED, PT DECLINED.
[2020-12-22 04:00] VITALS: BP 98/56
--- NOTE | 2020-12-22 04:46 | NUR ---
ANTIBIOTIC COM[PLETED AT THIS TIME. PATIENT REQUESTING COFFEE WITH CREAM AND SUGAR. PROVIDED COFFEE TO PT.
--- NOTE | 2020-12-22 06:20 | NUR ---
BEATER TENDER REPORT BLOOD GLUCOSE OF 66, PATIENT PROVIDED WITH FOOD AND DRINK. WILL RECHECK ACCORDINGLY. PATIENT REPOSITIONE IN BED.
--- NOTE | 2020-12-22 06:43 | NUR ---
nurse notified of patient accucheck was 62.
--- NOTE | 2020-12-22 07:00 | NUR ---
RECIEVED REPORT EDEN HENDERSON RN
--- NOTE | 2020-12-22 07:20 | NUR ---
AMBER REUSLTING IN 62. SNACK PROVIDED TO PTCaitie CLARK RESULTING IN 83 UPON REASSESSMENT.
[2020-12-22 08:13] VITALS: BP 99/62
--- NOTE | 2020-12-22 08:13 | NUR ---
PT ESTING IN SEMI FOWLERS POSIITON. PT IS A/OX3, MENTALLY DELAYED. ASSESSMENT AND VITALS COMPLETED. BP 99/62, HR 09, O2 98% ON ROOM AIR. RESPIRATIONS ARE EVEN AND UNLABORED ON ROOM AIR.BOWEL SOUNS ARE ACTIVE. HEART RHYTHM NORMAL RIJ FLUSHED WITH GOOD BLOOD RETURN IN 1/3 LUMENS. SITE APPEARS HEALTHY AND PATENT.CONTRATION NOTED TO ALL EXTREMITIES. 1+ EDEMA NOTED TO BLE. PEDAL PULSES WEAK. DRESSING TO JUNIOR HEELS ARE CDI WITH HEEL PROTECTORS IN PLACE. PT COMPLAINS OF 4/10 PAIN IN BLE. PT MEDICATED PER EMAR.PT DENIES OF ANY ADDITIONAL NEEDS. ALL SAFETY PRECAUTIONS ARE IN PLACE WITH CALL LIGHT IN REACH. WILL CONTINUE TO MONITOR
--- NOTE | 2020-12-22 08:41 | NUR ---
MORNING MEDCATIONS ADMINISTERED. PT TOLERTED WELL. PT EQUEST TO BE REPOSITIONED.
--- NOTE | 2020-12-22 09:00 | NUR ---
DR YOUSSEF AND MEME,ANRP AT BEDSIDE
--- NOTE | 2020-12-22 11:54 | NUR ---
DRESSING TO JUNIOR ANKLES CHANGES, PHOTOS OBTAINED. HEEL PROTECTOR REAPPLIED. PT INCONT OF URINE. ASSITD AID WITH PERICARE. RESPIRATIONS REMAINS EVEN AND UNLABORED WITH NO DISTRESS NOTED. RIJ REMAINS IN PLACE. PT DENIES OF ANY PAINS OR DISCOMFORTS. ALL SAFETY PECAUTIONS ARE IN PLACE WITH CALL LIGHT IN REACH. WILL CONTINUE TO MONITOR.
[2020-12-22 14:45] VITALS: BP 113/71
--- NOTE | 2020-12-22 15:35 | NUR ---
PT SLEEPING IN SEMI FOWLERS POSITION. RESPIRATIONS ARE EVEN AND UNLABORED WITH NO DISTRESS NOTED. RIJ REMAINS IN PLACE. NO SIGNS OF ANY PAINS OR DISCOMFORTS. HEEL PROTECTORS REMAINS.NO SIGNS OF ANY PAINS OR DISCOMFORTS. ALL SAFETY PRECAUTIONS ARE IN PLACE WITH CALL LIGHT IN RECH. WILL CONTINUE TO MONITOR
--- NOTE | 2020-12-22 17:00 | NUR ---
ATTEMPTED TO CALL DELGADO (CAREGIVER). VOICE MAIL FULL.
--- NOTE | 2020-12-22 17:39 | NUR ---
REPORTED ACCUCHECK OF 66. PUDDING AND JUICE PROVIDED. 84 UPON REASSESSMENT.
[2020-12-22 19:00] VITALS: BP 102/62
--- NOTE | 2020-12-22 19:58 | NUR ---
PT RESTING IN BED, NO SIGNS OF DISTRESS NOTED, RESP EVEN AND UNLABORED. PT ALERT TO SELF, NON-VERBAL. MAKES EYE CONTACT. DISCUSSED POC NOT READY DUE TO COGNITIVE BARRIERS. DRESSINGS TO FEET BILAT INTACT, HEEL PROTECTORS IN PLACE. NOTED +4 PITTING EDEMA BLE, TRIPLE LUMEN RIJ, GOOD BLOOD RETIURN AND FLUSHED WELL. IV ANTIBIOTICS INITIATED, MEDICATED PER MAY. ASSESSMENT COMPLETED, CALL LIGHT IN REACH,CONTINUE TO MONITOR.
--- NOTE | 2020-12-23 00:19 | NUR ---
PT RESTING IN BED WITH EYES CLOSED, NO SIGNS OF DISTRESS NOTED, RESP EVEN AND UNLABORED. CALL LIGHT IN REACH, BED ALARM FOR SAFETY, CONTINUE TO MONITOR.
[2020-12-23 04:00] VITALS: BP 128/79
--- NOTE | 2020-12-23 04:00 | NUR ---
PT RESTING IN BED WITH EYES CLOSED, NO SIGNS OF DISTRESS NOTED, RESP EVEN AND UNLABORED. CALL LIGHT IN REACH, BED ALARM FOR SAFETY CONTINUE TO MONITOR.
--- NOTE | 2020-12-23 07:00 | NUR ---
RECIEVED REPORT FROM CARLTON TOMLINSON.
--- NOTE | 2020-12-23 07:30 | NUR ---
nurse notified of patient accucheck was 64.
[2020-12-23 07:54] VITALS: BP 124/76
--- NOTE | 2020-12-23 07:54 | NUR ---
PT RESTING IN SEMI FOWLERS POSITION. PT IS A/O X1, MENTALY DELAYED BUT ABLE TO EXPRESS NEEDES. ASSESSMENT AND VITALS COMPLETED. BP 124/76, HR 111, O2 100% ON ROOM AIR. REPSIRATIONS ARE EVEN AND UNLABORED WITH NO DISTRSS NOTED. LUNG SOUNDS ARE CLEAR. HEART RHYTHM NORMAL. BOWEL SOUNS ARE ACTIVE. RIJ TRIPLE LUMEN REMAINS IN PLACE, SITE APEARS HEALTHY AND PATENT WITH 2/3 BLOOD RETURN. 2+ EDEMA NOTED TO BLE.PEDAL PULSES WEAK. DRESSING TO JUNIOR ANKLE REAINS CDI WITH HEEL PROECTORS IN PLACE. PT COMPLAINS OF 5/0 PAIN IN BLE, PT TO BE MEDICATED PER EMAR. ACCUCHECK REUSLTING IN 58, SNACK GIVE. RESULTING IN 64. AID AT BEDSIDE ASSISTING WITH FEED. ALL SAFETY PRECAUTIONS ARE IN PLACE WITH CALL LIGHT IN REACH. WILL CONTINUE TO MONITOR.
--- NOTE | 2020-12-23 09:17 | NUR ---
DR YOUSSEF AND MEME,ANRP AT BEDSIDE
--- NOTE | 2020-12-23 10:30 | NUR ---
REASSESSMENT OF ACCUCHEK REUSLTING IN 81. PT REMAINS ASYMPOMATIC.
--- NOTE | 2020-12-23 11:58 | NUR ---
PT RESTING IN HIGH FOWLERS POSITION. AID AT BEDSIDE TO ASSIST WITH FEEDING. RESPIRATIONS ARE EVEN AND UNLABORED ON ROOM AIR. PT DENIES OF ANY PAINS OR DISCOMFORTS. ALL SAFETY PRECAUTIONS ARE IN PLACE WITH CALL LIGHT IN REACH. WILL CONTINUE TO MONITOR
[2020-12-23 15:12] VITALS: BP 122/78
--- NOTE | 2020-12-23 16:10 | NUR ---
SPOKE WITH TATIANA FROM [facility]. DC INSTRUCTIONS EXPLAINED. VERBALIZED UNDERSTANDING. SCHEDULED GEOPHYSICAL OPERATOR AT 1800
--- NOTE | 2020-12-23 16:30 | NUR ---
PT RESTING IN SEMI FOWLERS POSITION. REPSIRATIONS ARE EVEN AND UNLABORED WITH NO DISRTESS NOTED. ASSISTED LAB SUPPORT TECH WITH CHANGING PT. PT CLEAN AT THIS TIME. RIJ TO BE REMOVED BY KATJA BEAR. PT DENIES OF ANY PAINS OR DISCOMFORTS AT THIS TIME. ALL SAFETY PRECAUTIONS ARE IN PLACE WITH CALL LIGHT IN REACH. WILL CONTINUE TO MONITOR
--- NOTE | 2020-12-23 16:57 | NUR ---
RT IJ TRIPLE LUMEN REMOVED BY Zenobia ESQUIVEL RN; PT TOLERATED WELL. INTACT UPON REMOVAL. OCCLUSIVE DRESSING APPLIED WITH A BIOPATCH IN PLACE.
--- NOTE | 2020-12-23 16:58 | NUR ---
RIJ REMOVED BY KATJA FERREIRA AND KATJA WEST. PRESSURE DRESSING APPLIED.
== END 2020-12-23 17:20 ==
LOC: MS2 15:40
PROVIDERS: Nurse Practitioner; ADMIT Internal Medicine; ATTEND Internal Medicine
DX: A41.81 Sepsis due to Enterococcus (principal); R65.20 Severe sepsis without septic shock; G93.41 Metabolic encephalopathy; G40.909 Epilepsy, unspecified, not intractable, without status epilepticus; R62.7 Adult failure to thrive; D64.9 Anemia, unspecified; I99.8 Other disorder of circulatory system; F72 Severe intellectual disabilities; G80.9 Cerebral palsy, unspecified; Z68.25 Body mass index [BMI] 25.0-25.9, adult
CPT/HCPCS: G0378; J1650

== ENCOUNTER 2021-01-02 13:26 | Inpatient (IN) | payer OTHER ==
[2020-12-30 21:15] VITALS: BP 82/33
[~2021-01-02] VITALS: Ht 167.6 cm; Wt 87.0 kg
[2021-01-02] VITALS (8 sets, daily range): BP systolic 68–98; BP diastolic 33–56
[~2021-01-02 13:26] MED LIST changes: -CICLOPIROX EX; +CICLOPIROX TOP; -KETOCONAZOLE2 % EX; +KETOCONAZOLE2 % TOP
--- NOTE | 2021-01-02 14:20 | NUR ---
PT ARRIVED VIA EMS, MENTALLY DELAYED PT THAT DOES NOT SPEAK, HR ELEVATED AT 140 ON MONITOR, MD MADE AWARE
[2021-01-02 14:29] LABS: HEMATOCRIT 34.2 % (39.0-50.0); HEMOGLOBIN 10.2 g/dl (14.0-18.0); IMMATURE GRANULOCYTES 0.8 % (0.0-5.0); MEAN CELL VOLUME 102.1 fL CALC (80.0-100.0); MEAN CORPUSCULAR HGB 30.4 pG CALC (26.0-32.0); MEAN CORPUSCULAR HGB CONC 29.8 g/dL CAL (32.0-36.0); NEUT# 16.54 thou/uL (1.82-7.42); RED BLOOD COUNT 3.35 mill/uL (4.70-6.10); RED CELL DISTRI WIDTH 19.5 % (11.5-15.5)
[2021-01-02 14:40] LABS: ALBUMIN 2.7 g/dL (3.2-5.0); ALKALINE PHOSPHATASE 145 u/l (38-126); ANION GAP 8 (6-22 (CALC)); BILIRUBIN, TOTAL 0.9 mg/dL (0.0-1.4); BUN 15 mg/dL (9-20); BUN/CREATININE RATIO 24 (12-20 (CALC)); CARBON DIOXIDE 31 mmol/l (22-30); CHLORIDE 101 mmol/l (95-108); CREATININE 0.6 mg/dL (0.7-1.3); GFR > 60 ML/MIN (>=60 (CALC)); GFR FOR AFR.AMER. > 60 ML/MIN (>=60 (CALC)); LIPASE 101 u/l (23-300); MAGNESIUM 2.2 mg/dL (1.6-2.3); POTASSIUM 4.1 mmol/l (3.5-5.1); SGOT/AST 52 u/l (17-59); SODIUM 136 mmol/l (137-146); TOTAL PROTEIN 8.6 g/dL (6.3-8.2)
[2021-01-02 14:53] LABS: URINE BLOOD DIPSTICK NEGATIVE (NEGATIVE); URINE COLOR YELLOW; URINE GLUCOSE - DIPSTICK NEGATIVE (NEGATIVE); URINE KETONE NEGATIVE (NEGATIVE); URINE LEUK ESTERASE NEGATIVE (NEGATIVE); URINE PROTEIN - DIPSTICK NEGATIVE (NEG-TRACE)
[2021-01-02 14:56] LABS: URINE BILIRUBIN - DIPSTICK SMALL (NEGATIVE); URINE NITRITE - DIPSTICK NEGATIVE (Negative)
--- NOTE | 2021-01-02 15:33 | NUR ---
PT ON CONTINUOUS CARDIAC MONITORING, HR 130, RECIVING IVF AND ANTIBIOTICS
--- NOTE | 2021-01-02 16:27 | NUR ---
PT IN NO DISTRESS AT THIS TIME OTHER THAN ST ON MONITOR, HR 136, MD AWARE, PT RECIVING IVF AND ABX.
--- NOTE | 2021-01-02 16:57 | NUR ---
CALLED SPOKE WITH NEL RODRIGUES PATIENT [employer]. OK TO DO SURGERY WOULD LIKE UPDATE CELL NUMBER [phone]
--- NOTE | 2021-01-02 16:59 | NUR ---
GAVE REPORT TO DANDRE RN, PT AWAITING OR
--- NOTE | 2021-01-02 18:00 | NUR ---
GAVE REPORT TO OR AND THEY TRANSPORTED PT TO OR
--- NOTE | 2021-01-02 20:00 | NUR ---
rec'd from or to icu4 per stretcher. transferred x4 to bed. bed weight obtained. pt remains sedated. o2 cont per nc. rides supervisor shows sinus tach hr 103. ivf infusing per rij tlc. dsg to rt hip cdi. has multi wounds bilat feet. photos taken. heel protectors cont bilat. pt is incont of urine. #16 fr garcia inserted per adam hooper. history obtained per er record. fall precautions cont. bilat wrist restraints cont. requires total care for all needs.
[2021-01-03] VITALS (29 sets, daily range): BP systolic 80–132; BP diastolic 43–88
--- NOTE | 2021-01-03 00:01 | NUR ---
freq bp cont. cuff readjusted several times. unable to get accurate pulse ox.
--- NOTE | 2021-01-03 04:05 | NUR ---
blood drawn & sent to lab.
--- NOTE | 2021-01-03 05:00 | NUR ---
unable to get accurate pulse ox. rt aware.
[2021-01-03 06:15] LABS: ALKALINE PHOSPHATASE 98 u/l (38-126); BUN 12 mg/dL (9-20); BUN/CREATININE RATIO 24 (12-20 (CALC)); CARBON DIOXIDE 29 mmol/l (22-30); CHLORIDE 111 mmol/l (95-108); CREATININE 0.5 mg/dL (0.7-1.3); GFR > 60 ML/MIN (>=60 (CALC)); GFR FOR AFR.AMER. > 60 ML/MIN (>=60 (CALC)); HEMATOCRIT 28.7 % (39.0-50.0); HEMOGLOBIN 8.3 g/dl (14.0-18.0); IMMATURE GRANULOCYTES 0.5 % (0.0-5.0); MEAN CELL VOLUME 104.7 fL CALC (80.0-100.0); MEAN CORPUSCULAR HGB 30.3 pG CALC (26.0-32.0); MEAN CORPUSCULAR HGB CONC 28.9 g/dL CAL (32.0-36.0); NEUT# 12.88 thou/uL (1.82-7.42); POTASSIUM 3.3 mmol/l (3.5-5.1); RED BLOOD COUNT 2.74 mill/uL (4.70-6.10); RED CELL DISTRI WIDTH 19.6 % (11.5-15.5); SGOT/AST 30 u/l (17-59)
[2021-01-03 06:18] LABS: ALBUMIN 1.9 g/dL (3.2-5.0); ANION GAP 7 (6-22 (CALC)); BILIRUBIN, TOTAL 0.4 mg/dL (0.0-1.4); SODIUM 144 mmol/l (137-146); TOTAL PROTEIN 6.4 g/dL (6.3-8.2)
--- NOTE | 2021-01-03 08:43 | NUR ---
PT SEEN AWAKE, LOOKING AROUND, ESSENTIALLY NONVERBAL. LUNGS CLEAR, 2 LPM NC. DRESSINGS TO BILATERAL LATERAL MALLEOLLUSES, RIGHT HIP. PT WITH TLC TO RIJ, RESTRAINED TO PREVENT HIM FROM PULLING IT OUT. PT WAS FED BREAKFAST, SEEN TO SWALLOW WITHOUT COUGH.
--- NOTE | 2021-01-03 10:36 | NUR ---
DR HANNON HAS ROUNDED AND SEEN PT. BLOOD CULTURES WERE DRAWN AND SENT TO LAB.
--- NOTE | 2021-01-03 11:28 | NUR ---
S: LANA HERBERT is a 50 M who presents with ABSCESS/SEPSIS. He has a history of seizure disorder, mental retardation, and cerebral palsy. All medications in patient's chart were reviewed. O: VS: BP 81/43 MMHG, P 88 bpm, RR 31 BPM, T 97.8F W 81 kg, HT 5'6", Scr=0.5, CrCl= 171 mL/min A: Blood culture pending P: Patient is on Zosyn 3.375 GM IV Q6H. Vancomycin ordered for pharmacy to dose. Start Vancomycin 1 GM IV Q8H. Vancomycin trough is drawn before the 4th dose on 01/04/21 @ 0730. Vancomycin goal trough is between 15-20 mcg/ml. Pharmacy will follow and or advise on antibiotics use as needed.
--- NOTE | 2021-01-03 13:49 | NUR ---
DR AMBRIZ IN TO SEE PT, DRESSING CHANGED AT THIS TIME. WET TO DRY TID.
[2021-01-03] MEDS ORDERED: SENEXON-S1 TAB PO (14:33)
--- NOTE | 2021-01-03 18:01 | NUR ---
PT WITH UNEVENTFUL AFTERNOON, SEEN AT REST IN THE BED WITH EYES CLOSED FOR MUCH OF THE TIME. DIET CHANGED TO PUREE PT UNABLE TO CHEW EFFECTIVELY, TO START WITH BREAKFAST.
--- NOTE | 2021-01-03 19:10 | NUR ---
awake. no acute distress. rt hip dsg intact. has small amt bright red blood seeping through bandage. equipment monitor phototypesetting shows sinus tach pvcs hr 104. rij tlc in place. ivf infusing well. chokes easily on po fluids. garcia cath in place. urine clear yellow. bilat heel protectors, scds, air mattress & fall precautions cont. turned & repositioned. requires total care for all needs.
[2021-01-04] VITALS (22 sets, daily range): BP systolic 68–141; BP diastolic 35–114
--- NOTE | 2021-01-04 00:01 | NUR ---
remains awake. denies distress.
--- NOTE | 2021-01-04 04:10 | NUR ---
blood drawn & sent to lab.
[2021-01-04 06:07] LABS: HEMATOCRIT 25.7 % (39.0-50.0); HEMOGLOBIN 7.6 g/dl (14.0-18.0); MEAN CELL VOLUME 102.8 fL CALC (80.0-100.0); MEAN CORPUSCULAR HGB 30.4 pG CALC (26.0-32.0); MEAN CORPUSCULAR HGB CONC 29.6 g/dL CAL (32.0-36.0); RED BLOOD COUNT 2.5 mill/uL (4.70-6.10); RED CELL DISTRI WIDTH 18.7 % (11.5-15.5)
[2021-01-04 06:23] LABS: ALBUMIN 1.8 g/dL (3.2-5.0); ALKALINE PHOSPHATASE 108 u/l (38-126); ANION GAP 5 (6-22 (CALC)); BILIRUBIN, TOTAL 0.4 mg/dL (0.0-1.4); BUN 5 mg/dL (9-20); BUN/CREATININE RATIO 12 (12-20 (CALC)); CARBON DIOXIDE 31 mmol/l (22-30); CHLORIDE 108 mmol/l (95-108); CREATININE 0.4 mg/dL (0.7-1.3); GFR > 60 ML/MIN (>=60 (CALC)); GFR FOR AFR.AMER. > 60 ML/MIN (>=60 (CALC)); MAGNESIUM 1.8 mg/dL (1.6-2.3); SGOT/AST 30 u/l (17-59); SODIUM 140 mmol/l (137-146); TOTAL PROTEIN 6.2 g/dL (6.3-8.2)
--- NOTE | 2021-01-04 07:48 | NUR ---
PT IS AWAKE, ALERT, ORIENTED TO PERSON, DIFFICULT TO UNDERSTAND WHEN HE SPEAKS. PILLS SWALLOWED OKAY WITH PUDDING. BREAKFAST ARRIVES, PUREED, FED BY HAZ TECH.
--- NOTE | 2021-01-04 11:50 | NUR ---
S: LANA HERBETR is a 50 M who presents with abscess, sepsis. He has a history of seixure disorder, mental retardation, cerebral palsy, and pneumonia. All medications in patient's chart were reviewed. O: VS: BP 107/57 MMHG, P 124 BPM, RR 24 BPM, T 97.6F W 87 KG, HT 5'6", Scr=0.4, CrCl= 275.8 mL/min A: Wound culture pending. P: Patient is on Zosyn 4.5 GM Q6H IV. Vancomycin ordered for pharmacy to dose. Continue Vancomycin 1G Q8H IV. Vancomycin trough is drawn before the 4th dose on <01/05/2021 @ 0730. Vancomycin goal trough is between 15-20 mcg/ml. Pharmacy will follow and or advise on antibiotics use as needed.
--- NOTE | 2021-01-04 12:56 | NUR ---
PT HAS DONE FAIRLY WELL WITH MEALS TODAY, BEING FED BY ANGELA FOLEY. PT AT REST IN THE BED NOW, EYES CLOSED. BP REMAINS WNL AFTER NILO DRIP DISCONTINUED.
--- NOTE | 2021-01-04 16:51 | NUR ---
PT PROVIDED A BEDBATH THIS AFTERNOON. DRESSING CHANGED TO LATERAL MALLEOLUSES AND RIGHT HIP.
--- NOTE | 2021-01-04 19:30 | NUR ---
PT RESTING IN BED ON AIR MATTRESS, NO SIGNS OF DISTRESS NOTED, RESP EVEN AND UNLABORED. PT ALERT TO SELF, VERY LETHRGIC, PT MAKES EYE CONTACT BUT DOES NOT SPEAK. NOTED DRESSING TO R HIP, CDI. SCD'S IN PLACE, HEEL PROTECTORS ON. ZHANG DRAINING TO GRAVITY. IVF INFUSING TO TRIPLE LUMEN CENTRAL LINE TO RIJ. PT DOES NOT OBEY COMMANDS, ASSESSMENT COMPLETED, CALL LIGHT IN REACH,CONTINUE TO MONITOR.
--- NOTE | 2021-01-04 20:12 | NUR ---
PT RESTING IN BED, DISCUSSED MEDS, PT NODDED HEAD IN AGREEMENT. PT MEDICATED PER MAR, TOLERATED WELL. NO SIGNS OF DISTRESS NOTED, RESP EVEN AND UNLABORED. CALL LIGHT IN REACH,CONTINUE TO MONITOR.
--- NOTE | 2021-01-04 22:00 | NUR ---
PT RESTING IN BED, DISCUSSED DRESSING CHANGE, PT NODDED. NOTED WOUNDS X3 TO R HIP, CLEANSED WITH NS, PACKED WITH GAUZE AND COVERED WITH ABD PAD AND SECURED WITH TAPE. WET/DRY DRESSING COMPLETED, PT TOLERATED WELL. CALL LIGHT IN REACH,CONTINUE TO MONITOR.
--- NOTE | 2021-01-04 23:35 | NUR ---
PT'S NIBP DROPS TO 50'S/30'S. NEOSYNEPHRINE GTT RESUMED @ 0.5MCG/KG/MIN. 500ML IVF BOLUS ADMINISTERED. PT PLACED IN [place] POSITION. DR. HANNON MADE AWARE.
[2021-01-05] VITALS (30 sets, daily range): BP systolic 84–126; BP diastolic 42–69
--- NOTE | 2021-01-05 00:48 | NUR ---
NIBP 78/38 MAP 50, NEOSYNEPHRINE GTT TITRATED TO 0.6MCG/KG/MIN.
--- NOTE | 2021-01-05 00:56 | NUR ---
NEOSYNEPHRINE GTT INCREASED TO 0.7MG/KG/MIN FOR NIBP 78/38mmHg MAP 50.
--- NOTE | 2021-01-05 02:33 | NUR ---
PT BP 79/33 PHENYLEPHRINE GTT INCREASED TO 0.8MCG, PT RESTING IN BED WITH EYES CLOSED, NO SIGNS OF DISTRESS NOTED, RESP EVEN AND UNLABORED. PT NO LONGER TACHYCARDIC HR NOW 73. CALL LIGHT IN REACH,CONTINUE TO MONITOR.
--- NOTE | 2021-01-05 04:03 | NUR ---
AM LABS OBTAINED FROM CENTRAL LINE, PT TOLERATED WELL. CALL LIGHT IN REACH,CONTINUE TO MONITOR.
--- NOTE | 2021-01-05 05:05 | NUR ---
REPORTED TO DR. HANNON OF NEED FOR INCREASE TO NEOSYNEPHRINE GTT. ST 100s-120s ON MONITOR. ORAL TEMP 100.8. TYLENOL ADMINISTERED, SEE E-MAR. ORDER FOR BLOOD AND URINE CX, LACTIC ACID, AND PCXR RECEIVED. ORDER FOR 1L NACL 0.9% BOLUS RECEIVED. URINE AND BLOOD SAMPLES COLLECTED. SEE E-MAR FOR MEDICINE ADMINISTRATION.
[2021-01-05 05:43] LABS: URINE BILIRUBIN - DIPSTICK NEGATIVE (NEGATIVE); URINE BLOOD DIPSTICK NEGATIVE (NEGATIVE); URINE CLARITY CLEAR; URINE COLOR YELLOW; URINE GLUCOSE - DIPSTICK NEGATIVE (NEGATIVE); URINE KETONE NEGATIVE (NEGATIVE); URINE LEUK ESTERASE NEGATIVE (Negative); URINE NITRITE - DIPSTICK NEGATIVE (Negative); URINE PROTEIN - DIPSTICK NEGATIVE (NEG-TRACE)
[2021-01-05 05:49] LABS: HEMATOCRIT 24.6 % (39.0-50.0); HEMOGLOBIN 7.4 g/dl (14.0-18.0); MEAN CELL VOLUME 101.7 fL CALC (80.0-100.0); MEAN CORPUSCULAR HGB 30.6 pG CALC (26.0-32.0); MEAN CORPUSCULAR HGB CONC 30.1 g/dL CAL (32.0-36.0); RED BLOOD COUNT 2.42 mill/uL (4.70-6.10); RED CELL DISTRI WIDTH 18.8 % (11.5-15.5)
[2021-01-05 06:01] LABS: ANION GAP 5 (6-22 (CALC)); BUN 4 mg/dL (9-20); BUN/CREATININE RATIO 9 (12-20 (CALC)); CARBON DIOXIDE 30 mmol/l (22-30); CHLORIDE 108 mmol/l (95-108); CREATININE 0.5 mg/dL (0.7-1.3); GFR > 60 ML/MIN (>=60 (CALC)); GFR FOR AFR.AMER. > 60 ML/MIN (>=60 (CALC)); MAGNESIUM 1.9 mg/dL (1.6-2.3); POTASSIUM 3.1 mmol/l (3.5-5.1); SODIUM 140 mmol/l (137-146)
--- NOTE | 2021-01-05 08:07 | NUR ---
PT SEEN AWAKE, LOOKING AROUND, ORIENTED TO SELF ONLY. LUNGS CLEAR, RA. PT ABLE TO SWALLOW POTASSIUM PILLS WITHOUT ISSUE. BREAKFAST ARRIVES, FED BY ANGELA RODRIGUEZ.
--- NOTE | 2021-01-05 13:20 | NUR ---
PT CONTINUES BEFORE, SEEN AT REST IN THE BED IN NO ACUTE DISTRESS. PT FED BY ANGELA FOLEY.
--- NOTE | 2021-01-05 14:18 | NUR ---
S: LANA HERBERT is a 50 M who presents with abscess and sepsis. He has a history of seizure disorder, interllectual disability-severe, and cerebral palsy. All medications in patient's chart were reviewed. O: VS: BP 123/65 mmHg, P 104 bpm, RR 24 bpm,T 98.4 F W=87 kg, YE=383.64 cm, Scr=0.5 mg/dL, CrCl= 219.9 ml/min A: Blood culture pending. Buttock right is growing pseudomonas P: Patient is on Zosyn 4.5 mg IV Q6H and vancomycin 1g IV Q8H. Vancomycin ordered for pharmacy to dose. Start Vancomycin 01/03/2021 IV Q8H. Vancomycin trough is drawn before the 4th dose on 01/06/21 at 0730. Vancomycin goal trough is between <15-20 mcg/ml>. Pharmacy will follow and or advise on antibiotics use as needed.
--- NOTE | 2021-01-05 16:01 | NUR ---
PT CONTINUES ON NEOSYNEPHRINE DRIP, BP SEEN AT 119/64. PT WITH WOUND DRESSING CHANGED RECENTLY, BOTH ANKLES AND RIGHT HIP ABSCESS SITES.
--- NOTE | 2021-01-05 18:45 | NUR ---
SBAR RECEIVED FROM KATJA ERIC
--- NOTE | 2021-01-05 20:12 | NUR ---
BP 84/47, PHENYLEPHRINE INCREASED TO 0.3MCG/KG/MIN, VITALS SET FOR EVERY 5 MINS
--- NOTE | 2021-01-05 20:23 | NUR ---
BP [id number]
[2021-01-06] VITALS (29 sets, daily range): BP systolic 64–144; BP diastolic 45–91
--- NOTE | 2021-01-06 00:30 | NUR ---
PATIENT IN BED AWAKE. REPOSITIONED FOR COMFORT. IV ANTIBIOTICS ADMINISTERED. NO DISTRESS NOTED. NONVERBAL BEHAVIOR DOES NOT EXPRESS PAIN. BED IN LOW POSITION, LOCKED. CALL LIGHT WITHIN REACH.
--- NOTE | 2021-01-06 04:30 | NUR ---
RESTING QUIETLY IN BED EYES CLOSED. VSS. BP 107/63, PHENYLEPHRINE AT 0.3MCG/KG. PATIENT STABLE. NO DISTRESS NOTED. CALL LIGHT WITHIN REACH.
--- NOTE | 2021-01-06 07:00 | NUR ---
REPORT RECIEVED FROM Kimberley MORELAND RN. PT BP IS 68/50. WILL TITRATE PHENYLEPHRINE PER PROTOCOL. PT AWAKE AND ALERT. NO APPROPRIATE. SAFETY REVIEWED, WILL CONTINUE TO MONITOR CLOSELY.
--- NOTE | 2021-01-06 07:52 | NUR ---
phenylephrine titrated to 0.5mcg/kg at this time r/t bp68/50 map of 56, bp set to titrate q5 minutes. labs drawn through tlc. pt awake and alert. asking for chocolate milk. breakfast tray at bs. will assist with meal. pt denies pain, sob or discomfort.
[2021-01-06 08:06] LABS: HEMATOCRIT 25.2 % (39.0-50.0); HEMOGLOBIN 7.7 g/dl (14.0-18.0); MEAN CELL VOLUME 100.4 fL CALC (80.0-100.0); MEAN CORPUSCULAR HGB 30.7 pG CALC (26.0-32.0); MEAN CORPUSCULAR HGB CONC 30.6 g/dL CAL (32.0-36.0); RED BLOOD COUNT 2.51 mill/uL (4.70-6.10); RED CELL DISTRI WIDTH 18.9 % (11.5-15.5)
[2021-01-06 08:21] LABS: ANION GAP 3 (6-22 (CALC)); BUN 4 mg/dL (9-20); BUN/CREATININE RATIO 10 (12-20 (CALC)); CARBON DIOXIDE 36 mmol/l (22-30); CHLORIDE 102 mmol/l (95-108); CREATININE 0.5 mg/dL (0.7-1.3); GFR > 60 ML/MIN (>=60 (CALC)); GFR FOR AFR.AMER. > 60 ML/MIN (>=60 (CALC)); MAGNESIUM 1.8 mg/dL (1.6-2.3); POTASSIUM 3.5 mmol/l (3.5-5.1); SODIUM 137 mmol/l (137-146)
--- NOTE | 2021-01-06 10:06 | NUR ---
BP IS 94/52 MAP IS 73. LEVOPHED INITIATED AT THIS TIME PER PROTOCOL.
--- NOTE | 2021-01-06 10:56 | NUR ---
phenyllephrine titrated down to 0.4mcg/kg/min at this time. levophed infusing at 8mcg/min. bp is 144/79.
--- NOTE | 2021-01-06 11:02 | NUR ---
S: LANA HERBERT is a 50 M who presents with absscess, sepsis. He has a history of seizure disorder, intellectual disability-severe, and cerebral palsy. All medications in patient's chart were reviewed. O: VS: BP 94/52 mmHg, P 100 bpm, RR 16 bpm ,T 98.3 F W 87 kg, HT 167.64 cm, Scr= 0.5 mg/dL ,CrCl= 171 ml/min A: Blood cultures pending Wound culture shows Pseudomonas aeruginosa P: Patient is on Zosyn 4.5 gm Q6H IV. Vancomycin ordered for pharmacy to dose. continue Vancomycin 1g IV Q8H @ 0030, 0800,1600. Vancomycin trough is to be drawn on 01/08/2021 @ 0730. Vancomycin goal trough is between <15-20 mcg/ml>. Pharmacy will follow and or advise on antibiotics use as needed.
--- NOTE | 2021-01-06 16:47 | NUR ---
PT RESTING WITH EYES CLOSED, DOES NOT APPEAR TO BE IN ANYTYPE OF DISTRESS. VANCOMYCIN INFUSING AT THIS TIME THROUGH TLC. VSS. LEVOPHED INFUSING AT INITITAL 8MCG/MIN. VS 104/61. PT DOES NOT APPEAR TO BE SAFETY REVIEWED, CALL LIGHT WITHIN REACH. NO ACCEPTING PHYSICIAN OR BED AVAILABLE AT [facility] AT THIS TIME.
--- NOTE | 2021-01-06 17:17 | NUR ---
[facility] TRANSFER CENTER ON PHONE. BED AVAILABLE. [facility] NOTIFIED. WILL ARRANGE TRANSPORTATION.
--- NOTE | 2021-01-06 18:14 | NUR ---
PT C/O PAIN AT THIS TIME WILL GIVE TYLENOL ORDERED. BP STABLE. [facility] PICKUP TIME IS WITHIN 3 HOURS. ATTEMPTED TO CALL JEAN ON EMERGENCY CALL LIST, NO ANSWER.
--- NOTE | 2021-01-06 19:20 | NUR ---
awake. denies distress. rib cutter shows sinus tach hr 121. rij in place. levo infusing @ 8mcg/min, ns infusing @ 10cchr. garcia cath in place. urine yellow. dsg cont rt hip & bilat feet. bilat heel protectors, air mattress & fall precautions cont. turned & repositioned. requires total care for all needs.
--- NOTE | 2021-01-06 22:00 | NUR ---
awake. no distress. no c/o.
[2021-01-07] VITALS: BP 140/69
--- NOTE | 2021-01-07 00:01 | NUR ---
naps for short intervals. bus driver/monitor shows sinus tach hr 108.
[2021-01-07 01:00] VITALS: BP 110/74
--- NOTE | 2021-01-07 01:03 | NUR ---
[facility] here. report given to
--- NOTE | 2021-01-07 01:25 | NUR ---
[facility] left. report called to adam duong @ [phone]. to go to [phone].
== END 2021-01-07 01:20 | disposition short-term general hospital (02) | DRG 853 ==
LOC: ED 13:26 → ED-I 16:10 → ED 16:25 → ICU 16:26
PROVIDERS: Family Medicine; Surgery; ADMIT Internal Medicine; ATTEND Internal Medicine
PROC: 0KBN0ZZ Excision of Right Hip Muscle, Open Approach (ICD-10-PCS; principal; 2021-01-02)
PROC: 05HM33Z Insertion of Infusion Device into Right Internal Jugular Vein, Percutaneous Approach (ICD-10-PCS; 2021-01-02)
PROC: B543ZZA Ultrasonography of Right Jugular Veins, Guidance (ICD-10-PCS; 2021-01-02)
DX: A41.9 Sepsis, unspecified organism (principal); R65.21 Severe sepsis with septic shock; L89.314 Pressure ulcer of right buttock, stage 4; L02.31 Cutaneous abscess of buttock; F72 Severe intellectual disabilities; L03.317 Cellulitis of buttock; C95.90 Leukemia, unspecified not having achieved remission; G80.9 Cerebral palsy, unspecified; D64.9 Anemia, unspecified; E87.6 Hypokalemia; R62.7 Adult failure to thrive; Z68.28 Body mass index [BMI] 28.0-28.9, adult; G40.909 Epilepsy, unspecified, not intractable, without status epilepticus; B96.5 Pseudomonas (aeruginosa) (mallei) (pseudomallei) as the cause of diseases classified elsewhere; Z74.01 Bed confinement status; Z20.822 Contact with and (suspected) exposure to COVID-19
CPT/HCPCS: J1650; Q9967